=== PATIENT | female | born 1955 | race Caucasian/White ===

== ENCOUNTER → 2016-04-08 | Outpatient (CLI) | payer OTHER ==
[~2016-04-08] MED LIST: ASPI1TAB35 PO; CYAN6000 PO; CYCL5TAB PO; GUAR1POW PO; GUARPOW2 PO; OXYC1TAB3 PO; PRED10TA PO
[2016-04-08 11:47] LABS: BASO % 0.7 %; BASO ABS # 0.04 K/uL (0-0.2); COMPLETE YES; EOS % 1.5 %; HEMATOCRIT 42.9 % (37-47); IG% 0.2 %; LYMPH % 33.3 %; LYMPH ABS # 2.04 K/uL (1.2-3.4); MEAN CELL VOLUME 85.5 fL (80-100); MEAN CORPUSCULAR HEMOGLOBIN 28.5 pg (25-34); MEAN CORPUSCULAR HGB CONC 33.3 g/dl (32-36); MEAN PLATELET VOLUME 10.1 fL (7.4-10.4); MONO % 5.9 %; NEUT % 58.4 %; PLATELET COUNT 287 K/uL (130-400); RED BLOOD COUNT 5.02 M/uL (4.2-5.4); WHITE BLOOD COUNT 6.12 K/uL (4.8-10.8)
[2016-04-08 12:11] LABS: ALT/SGPT 19 U/L (12-78); BLOOD UREA NITROGEN 12 mg/dl (7-18); BUN/CREATININE RATIO 16.5 (10-20); CALCIUM 9.5 mg/dl (8.5-10.1); CARBON DIOXIDE 23 mmol/L (21-32); CHLORIDE 108 mmol/L (98-107); CHOLESTEROL 196 mg/dl (0-200); CREATININE 0.75 mg/dl (0.60-1.20); GLUCOSE 83 mg/dl (70-99); SODIUM 143 mmol/L (136-145)
[2016-04-08 12:22] LABS: ALKALINE PHOSPHATASE 110 U/L (45-117); AST/SGOT 11 U/L (15-37); CHOLESTEROL/HDL RATIO 3.4; HDL CHOLESTEROL 58 mg/dl; LDL CHOLESTEROL CALCULATED 120 mg/dl; TRIGLYCERIDES 89 mg/dl (0-150); VERY LOW DENSITY LIPOPROT CALC 18 mg/dl
== END | disposition home or self-care (01) ==
LOC: C.LAB 10:36
PROVIDERS: ATTEND Internal Medicine
DX: Z13.0 Encounter for screening for diseases of the blood and blood-forming organs and certain disorders involving the immune mechanism (principal); D53.8 Other specified nutritional anemias; E78.5 Hyperlipidemia, unspecified; Z13.1 Encounter for screening for diabetes mellitus; Z13.29 Encounter for screening for other suspected endocrine disorder

== ENCOUNTER → 2016-10-02 | Outpatient (CLI) | payer OTHER | END | disposition home or self-care (01) | LOC: C.PAPS 08:20 | PROVIDERS: ATTEND Obstetrics & Gynecology | DX: Z12.4 Encounter for screening for malignant neoplasm of cervix (principal) ==

== ENCOUNTER 2016-10-19 22:00 | Emergency (ER) | payer OTHER ==
[~2016-10-19] VITALS: Ht 170.2 cm; Wt 83.2 kg
[~2016-10-19 22:00] MED LIST changes: -ASPI1TAB35 PO; -CYCL5TAB PO; -GUAR1POW PO; -OXYC1TAB3 PO; -PRED10TA PO
[2016-10-19 22:03] VITALS: TEMP 36.8; Ht 170.2 cm; Wt 83.2 kg
[2016-10-19] MEDS ORDERED: GUAR1POW PO (22:31)
[2016-10-19] MEDS ORDERED: ASPI1TAB35 PO (22:31)
--- NOTE | 2016-10-19 23:09 | EMERGENCY ROOM VISIT NOTE ---
History Report prepared by Lauren: Evelio Lambert Under the Supervision of: Dr. Jeffry Anthony D.O. First contact with patient: 22:06 Chief Complaint: HIP PAIN Stated Complaint: LT HIP PAIN History of Present Illness The patient is a 61 year old female who presents to the Emergency Room with complaints of left stabbing hip pain that occurred this evening. The patient rates her pain a 10/10 in severity. The patient has been seeing a chiropractor for her lower back pain for the past 6 weeks. Recently, the patient has noticed her left hip has been "giving out" on her. She describes this as slipping down and forward. For her last four adjustments, she states that they have had to push her pelvis back in to place. She has a history of DDD and bone spurs in the area. She denies any other abnormal symptoms. Source of History: patient Onset: this evening Position: other (left hip) Symptom Intensity: 10/10 Quality: stabbing Timing: constant Associated Symptoms: + back pain Note: She denies any other symptoms at this time. Review of Systems See HPI for pertinent positives & negatives. A total of 10 systems reviewed and were otherwise negative. Past Medical & Surgical Medical Problems: (1) Allergy to epinephrine Surgical Problems: (1) H/O dilation and curettage Family History Heart disease Hypertension Lung disease Social History Smoking Status: Never Smoker Smokeless Tobacco Use: No Drug Use: none Marital Status: Housing Status: lives with significant other Occupation Status: unemployed Current/Historical Medications Scheduled Guar Gum (Nutrisource Fiber), 1 DOSE PO DAILY Scheduled PRN Aspirin (Danisha Aspirin), 325 MG PO DIRECTED PRN for Pain Allergies Coded Allergies: Diphenhydramine (Verified Allergy, Unknown, NEAR SYNCOPE, 10/19/16) Penicillins (Verified Allergy, Unknown, HIVES, 10/19/16) Propoxyphene (Verified Allergy, Unknown, BELLS PALSY SYMPTOMS, 10/19/16) Epinephrine (Verified Adverse Reaction, Unknown, NUMBNESS, 10/19/16) Ibuprofen (Verified Adverse Reaction, Unknown, NUMBNESS, HEART PALPATIONS , 10/19/16) Medroxyprogesterone (Verified Adverse Reaction, Unknown, NEAR SYNOPAL, HOT , 10/19/16) Valdecoxib (Verified Adverse Reaction, Unknown, NUMBNESS, NEAR SYNOPAL, ) Uncoded Allergies: ANITHISTAMINES (Adverse Reaction, Unknown, DOES NOT TAKE THEM D/T NEAR SYNOPAL, 11/03/14) IV DYE (Adverse Reaction, Unknown, UNSURE OF RX, BUT WAS TOLD NOT TO HAVE IT, 11/03/14) Physical Exam Vital Signs Date Time Temp Pulse Resp B/P (MAP) Pulse Ox O2 Delivery O2 Flow Rate FiO2 10/19/16 22:03 36.8 78 18 130/73 95 Room Air Physical Exam CONSTITUTIONAL/VITAL SIGNS: Reviewed / noted above. GENERAL: Non-toxic in appearance. INTEGUMENTARY: Warm, dry, and Lloyd. HEAD: Normocephalic. EYES: without scleral icterus or trauma. ENT/OROPHARYNX: clear and moist. LYMPHADENOPATHY/NECK: Is supple without lymphadenopathy or meningismus. RESPIRATORY: Lungs clear and equal. CARDIOVASCULAR: Regular rate and rhythm. GI/ABDOMEN: Soft and nontender. No organomegaly or pulsatile mass. No rebound or guarding. Normal bowel sounds. EXTREMITIES: Warm and well perfused. BACK: Mild tenderness to the left lower back musculature. NEUROLOGICAL: Intact without focal deficits. PSYCHIATRIC: normal affect. MUSCULOSKELETAL: Normally developed with good muscle tone. Medical Decision & Procedures ER Provider Diagnostic Interpretation: Radiology results as stated below per my review: Pelvis - with left hip 2 View X-ray: No evidence of fracture or dislocation. Per me. ED Course 2205: Previous medical records were reviewed. The patient was evaluated in room A12. A complete history and physical examination was performed. 0: On reevaluation, the patient is resting. I discussed the results and findings with the patient. She verbalized agreement of the treatment plan. She was discharged home. Medical Decision Differentials considered include cauda equina syndrome, conus medullaris, spinal cord compression syndrome, peripheral nerve compression, fractures or subluxations, intra-abdominal pathology such as abdominal aortic aneurysm or kidney stones, muscle strain, transverse myelitis, and spinal cord injury. This is a 61-year-old female who presents to the ED with a chief complaint of left hip pain. The patient states that she has been having trouble with her back and hip for over 6 weeks. She has been seeing a chiropractor as well as her PCP. She reports having had x-rays of her back previously. The patient thinks that is her hip going out. The patient was concerned about this and came in for evaluation. The primary aspect or area of her pain is located in the area just above the left iliac crest and soft tissue of the low left back area. It does not appear to be overlying any joints or bony structures. X- rays of the pelvis and left hip did not show any abnormalities. The patient was told the results. She is felt to be stable for discharge. She did not want pain medication. Medication Reconcilliation Current Medication List: was personally reviewed by me Blood Pressure Screening Patient's blood pressure: Normal blood pressure Blood pressure disposition: Did not require urgent referral Impression Primary Impression: Left hip pain Scribe Attestation The scribe's documentation has been prepared under my direction and personally reviewed by me in its entirety. I confirm that the note above accurately reflects all work, treatment, procedures, and medical decision making performed by me. Departure Information Dispostion Home / Self-Care Referrals Samy Hsu M.D. (PCP) Forms HOME CARE DOCUMENTATION FORM, IMPORTANT VISIT INFORMATION, WORK / SCHOOL INSTRUCTIONS Patient Instructions My [facility] Additional Instructions Follow-up with your doctor for further care and evaluation in 1-2 days. Return to the emergency department for worsening or new symptoms or any concerns. You have been examined and treated today on an emergency basis only. This is not a substitute for, or an effort to provide, complete comprehensive medical care. It is impossible to recognize and treat all injuries or illnesses in a single emergency department visit. It is therefore important that you follow up closely with your doctor. Call as soon as possible for an appointment.
[2016-10-19 23:27] VITALS: BP 119/79; PULSE 83; O2SAT 95
--- NOTE | 2016-10-20 06:41 | DIAGNOSTIC IMAGING REPORT ---
AP PELVIS AND LEFT HIP 3 VIEWS CLINICAL HISTORY: Left hip pain COMPARISON STUDY: No previous studies for comparison. FINDINGS: No acute fractures or subluxations are visualized. There are no erosive or destructive changes. The joint space appears relatively well preserved for age. Minor degenerative changes are evident. There is an accessory right L5 transverse process/sacral articulation. IMPRESSION: Minor degenerative change. No fractures identified. No destructive lesions are visualized Electronically signed by: Johnny Guillen M.D. 10/20/2016 6:39 AM Dictated Date/Time: 10/20/2016 6:38 AM
== END 2016-10-19 23:27 | disposition home or self-care (01) ==
LOC: C.EDB 22:02 → C.EDA 23:27
DX: M25.552 Pain in left hip (principal); Z82.49 Family history of ischemic heart disease and other diseases of the circulatory system

== ENCOUNTER 2016-10-21 18:13 | Emergency (ER) | payer OTHER ==
[~2016-10-21] VITALS: Ht 170.2 cm; Wt 97.7 kg
[~2016-10-21 18:13] MED LIST changes: +ASPI1TAB35 PO; +GUAR1POW PO
[2016-10-21 18:20] VITALS: TEMP 36.9; Ht 170.2 cm; Wt 97.7 kg
[2016-10-21] MEDS ORDERED: CYCLOBENZAPRINE HCL 10 MG TAB PO STA (18:32)
[2016-10-21] MEDS ORDERED: HYDROmorphone INJ 1 MG/ML SYR IM STA (18:32)
[2016-10-21] MEDS ORDERED: METHYLPREDNISOLONE 125 MG VIAL IM STA (18:32)
--- NOTE | 2016-10-21 18:39 | EMERGENCY ROOM VISIT NOTE ---
History Report prepared by Lauren: Morgan Gonzalez Under the Supervision of: Dr. Renée Miller M.D. First contact with patient: 18:20 Chief Complaint: HIP PAIN Stated Complaint: LF HIP PAIN History of Present Illness The patient is a 61 year old female who presents to the Emergency Room with complaints of constant posterior left hip pain starting a couple of hours ago. The patient states that she has been dealing with similar symptoms for the past 6 weeks, and she states that her "pelvis is slipping out". The patient states that she was in the ED two days ago for similar symptoms, and there were no abnormalities on the x-ray. The patient additionally states that her leg feels weak and inflamed. The patient additionally states that a week ago she lost control of her bowel or bladder, and she states that she pain is not radiating into her legs. She states that she cannot bear weight, and standing worsens the pain. Source of History: patient Onset: a couple of hours ago Position: other (left hip) Timing: constant Associated Symptoms: + weakness Review of Systems See HPI for pertinent positives & negatives. A total of 10 systems reviewed and were otherwise negative. Past Medical & Surgical Medical Problems: (1) Allergy to epinephrine Surgical Problems: (1) H/O dilation and curettage Family History Heart disease Hypertension Lung disease Social History Smoking Status: Never Smoker Drug Use: none Marital Status: Housing Status: lives with significant other Occupation Status: unemployed Current/Historical Medications Scheduled Guar Gum (Nutrisource Fiber), 1 DOSE PO DAILY Prednisone (Prednisone), 10 MG PO DIRECTED Scheduled PRN Aspirin (Danisha Aspirin), 325 MG PO DIRECTED PRN for Pain Cyclobenzaprine Hcl (Flexeril), 5 MG PO TID PRN for Muscle Spasms Oxycodone Immediate Rel Tab (Roxicodone Ir), 5 MG PO Q6H PRN for Pain Allergies Coded Allergies: Diphenhydramine (Verified Allergy, Unknown, NEAR SYNCOPE, 10/21/16) Penicillins (Verified Allergy, Unknown, HIVES, 10/21/16) Propoxyphene (Verified Allergy, Unknown, BELLS PALSY SYMPTOMS, 10/21/16) Epinephrine (Verified Adverse Reaction, Unknown, NUMBNESS, 10/21/16) Ibuprofen (Verified Adverse Reaction, Unknown, NUMBNESS, HEART PALPATIONS , 10/21/16) Medroxyprogesterone (Verified Adverse Reaction, Unknown, NEAR SYNOPAL, HOT , 10/21/16) Valdecoxib (Verified Adverse Reaction, Unknown, NUMBNESS, NEAR SYNOPAL, 10/21/16) Uncoded Allergies: ANITHISTAMINES (Adverse Reaction, Unknown, DOES NOT TAKE THEM D/T NEAR SYNOPAL, 11/03/14) IV DYE (Adverse Reaction, Unknown, UNSURE OF RX, BUT WAS TOLD NOT TO HAVE IT, 11/03/14) Physical Exam Vital Signs Date Time Temp Pulse Resp B/P (MAP) Pulse Ox O2 Delivery O2 Flow Rate FiO2 10/21/16 22:00 87 19 137/68 98 10/21/16 20:40 77 17 144/77 98 Room Air 10/21/16 19:45 77 18 138/77 98 10/21/16 19:07 88 16 138/86 98 Room Air 10/21/16 18:20 36.9 96 17 147/84 97 Room Air Physical Exam Vital signs reviewed. General: Well-appearing female, in no significant distress. HEENT: No scleral icterus, PERRLA, neck supple. Atraumatic. Cardiovascular: Regular rate and rhythm, no extra sounds. Pulmonary: Clear to auscultation bilaterally, normal work of breathing. Abdomen: Soft, nontender, nondistended, positive bowel sounds. Musculoskeletal: Tender to palpation over the left lumbar paraspinous muscles. Negative left leg raise with positive right leg raise with pain referring to the left flank. Atraumatic, no peripheral edema. Neurologic: Patient awake alert and oriented x 3, full strength in all 4 extremities. Cranial nerves 2 through 12 grossly intact. Skin: Warm, dry, no rash Medical Decision & Procedures ER Provider Diagnostic Interpretation: Radiology results as stated below per my review and radiologist interpretation: L-SPINE MIN 4 VIEWS ROUTINE HISTORY: 61 years-old Female L flank pain, radiculopathy acute left sided back pain without reported trauma. COMPARISON: Lumbar spine radiographs 08/20/2013 TECHNIQUE: 5 views of the lumbar spine FINDINGS: 6 nonrib-bearing lumbar vertebral segments are again seen with transitional lumbosacral anatomy on the right. There is pseudoarticulation of an enlarged right transverse process of L6 with the adjacent sacral ala. Mild convex left curvature of the mid lumbar spine is again seen. The bones are mildly demineralized. Multilevel endplate spurring with intervertebral disc space narrowing and facet arthropathy is redemonstrated. Mild anterior wedging of the L2 and L3 vertebral bodies again seen, unchanged from comparison. No acute compression deformity or malalignment. Intervertebral disc space narrowing is most pronounced at the 2-L3 and L3-L4 levels. Soft tissues are unremarkable. IMPRESSION: 1. No acute lumbar spine fracture or dislocation. 2. Redemonstration of multilevel endplate spurring, intervertebral disc space narrowing and facet arthropathy with unchanged mild anterior wedging at the L3 and L4 levels. 3. 6 nonrib-bearing lumbar type vertebral segments are seen with partial sacralization of L6 on the right. The above report was generated using voice recognition software. It may contain grammatical, syntax or spelling errors. Electronically signed by: Dejon Marie M.D. 10/21/2016 7:31 PM Dictated Date/Time: 10/21/2016 7:27 PM Medications Administered Medications (Trade) Dose Ordered Sig/Adam Route Start Time Stop Time Status Last Admin Dose Admin Cyclobenzaprine HCl (Flexeril Tab) 10 mg NOW STAT PO 10/21/16 18:32 10/21/16 18:34 DC 10/21/16 18:56 10 MG Methylprednisolone Sodium Succinate (Solu-Medrol IV) 125 mg NOW STAT IM 10/21/16 18:32 10/21/16 18:34 DC 10/21/16 18:58 125 MG Hydromorphone HCl (Dilaudid Inj) 1 mg NOW STAT IM 10/21/16 18:32 10/21/16 18:34 DC 10/21/16 18:58 1 MG Oxycodone HCl (Roxicodone Immediate Rel 5MG Home Pack) 1 homepack UD ONCE PO 10/21/16 20:45 10/21/16 20:46 DC 10/21/16 21:49 1 HOMEPACK Cyclobenzaprine HCl (FLEXERIL 10MG Home Pack) 1 homepack UD ONCE PO 10/21/16 20:45 10/21/16 20:46 DC 10/21/16 21:49 1 HOMEPACK Prednisone (PredniSONE TAB) 40 mg ONE STAT PO 10/21/16 20:43 10/21/16 20:45 DC 10/21/16 20:43 40 MG ED Course 1830: Past medical records reviewed. The patient was evaluated in room C11. A complete history and physical examination was performed. 1831: Dilaudid Inj 1mg IM, Solu-Medrol 125mg IM, Flexeril Tab 10mg PO 2031: I reevaluated the patient, and I updated her on her test results. I discussed the treatment plan, and she was agreeable. The patient is ready for discharge. 2042: Prednisone 40mg PO 2044: Flexeril 10mg Home Pack PO, Oxycodone HCl 1 Home Pack PO Medical Decision Differential Diagnoses: Muscle strain, deconditioning, lumbar radiculopathy, pyelonephritis, disc herniation, degenerative disc disease, and spinal stenosis. This patient was evaluated and appeared to be in no significant distress. Patient was given 10 mg of Flexeril, 1 mg of IM Dilaudid in 125 mg of IM Solu- Medrol. X-rays of the lumbar spine were obtained and are read as above. There is degenerative disc disease as well as some old wedge-shaped deformity of L3 and L4. I suspect the patient has a lumbar paraspinous muscle strain. She is anxious about the injury. She was feeling much improved after the above medications. She is cautious with ambulation therefore was provided a walker for discharge. She was given a prescription for prednisone taper. She will use Flexeril 5 mg 3 times daily as needed. She will use Tylenol as needed for less severe pain and OxyIR 5 mg every 6 hours as needed for severe pain. She was advised to use warm compresses and gentle stretching. She was advised that physical therapy may be of significant assistance. She was discharged in care of her and will return to the ER for worsening of symptoms or any medical concerns. Medication Reconcilliation Current Medication List: was personally reviewed by me Blood Pressure Screening Patient's blood pressure: Elevated blood pressure Blood pressure disposition: Elevated BP felt to be situational Impression Primary Impression: Lumbar paraspinal muscle spasm Additional Impression: Degenerative disc disease, lumbar Scribe Attestation The scribe's documentation has been prepared under my direction and personally reviewed by me in its entirety. I confirm that the note above accurately reflects all work, treatment, procedures, and medical decision making performed by me. Departure Information Dispostion Home / Self-Care Prescriptions Oxycodone Immediate Rel Tab (ROXICODONE IR) 5 Mg Tab 5 MG PO Q6H Y for Pain, #20 TAB Prov: Renée Miller M.D. 10/21/16 Cyclobenzaprine Hcl (FLEXERIL) 5 Mg Tab 5 MG PO TID Y for Muscle Spasms, #21 TAB Prov: Renée Miller M.D. 10/21/16 Prednisone (Prednisone) 10 Mg Tab 10 MG PO DIRECTED, #31 TAB 40 mg daily for 4 days, 30 mg daily for 3 days, 20 mg daily for 2 days, 10 mg daily for 2 days. Prov: Renée Miller M.D. 10/21/16 Referrals Pro,Samy Cartwright M.D. (PCP) Forms HOME CARE DOCUMENTATION FORM, IMPORTANT VISIT INFORMATION, WORK / SCHOOL INSTRUCTIONS Patient Instructions My [facility] Additional Instructions Diagnosis: Lumbar degenerative disc disease, paraspinous muscular spasm. Prednisone 40 mg daily for 4 days, 30 mg daily for 3 days, 20 mg daily for 2 days, 10 mg daily for 2 days. Flexeril 5 mg 3 times daily as needed for muscular spasm. Tylenol 650 mg every 6 hours as needed for pain. OxyIR 5 mg every 6 hours as needed for severe pain. Do not drive on this medication. Follow-up with your physician next week for reevaluation and likely physical therapy recommendations. Return to the emergency department for worsening of symptoms or any medical concerns. Problem Qualifiers
--- NOTE | 2016-10-21 19:32 | DIAGNOSTIC IMAGING REPORT ---
L-SPINE MIN 4 VIEWS ROUTINE HISTORY: 61 years-old Female L flank pain, radiculopathy acute left sided back pain without reported trauma. COMPARISON: Lumbar spine radiographs 08/20/2013 TECHNIQUE: 5 views of the lumbar spine FINDINGS: 6 nonrib-bearing lumbar vertebral segments are again seen with transitional lumbosacral anatomy on the right. There is pseudoarticulation of an enlarged right transverse process of L6 with the adjacent sacral ala. Mild convex left curvature of the mid lumbar spine is again seen. The bones are mildly demineralized. Multilevel endplate spurring with intervertebral disc space narrowing and facet arthropathy is redemonstrated. Mild anterior wedging of the L2 and L3 vertebral bodies again seen, unchanged from comparison. No acute compression deformity or malalignment. Intervertebral disc space narrowing is most pronounced at the 2-L3 and L3-L4 levels. Soft tissues are unremarkable. IMPRESSION: 1. No acute lumbar spine fracture or dislocation. 2. Redemonstration of multilevel endplate spurring, intervertebral disc space narrowing and facet arthropathy with unchanged mild anterior wedging at the L3 and L4 levels. 3. 6 nonrib-bearing lumbar type vertebral segments are seen with partial sacralization of L6 on the right. The above report was generated using voice recognition software. It may contain grammatical, syntax or spelling errors. Electronically signed by: Dejon Marie M.D. 10/21/2016 7:31 PM Dictated Date/Time: 10/21/2016 7:27 PM
[2016-10-21] MEDS ORDERED: CYCL5TAB PO (20:41)
[2016-10-21] MEDS ORDERED: OXYC1TAB3 PO (20:41)
[2016-10-21] MEDS ORDERED: PRED10TA PO (20:41)
[2016-10-21] MEDS ORDERED: FLEXERIL HOME PACK 10 MG VIAL PO ONE (20:45)
[2016-10-21] MEDS ORDERED: OXYCODONE IR HOME PACK PO ONE (20:45)
[2016-10-21] MEDS ORDERED: EMPTY 8 DRAM VIAL ONE (21:04)
[2016-10-21 22:00] VITALS: BP 137/68; PULSE 87; O2SAT 98
== END 2016-10-21 21:55 | disposition home or self-care (01) ==
LOC: EDBD 18:13 → C.EDC 18:14
DX: M62.830 Muscle spasm of back (principal); M51.36 Other intervertebral disc degeneration, lumbar region; Z98.890 Other specified postprocedural states; Z82.49 Family history of ischemic heart disease and other diseases of the circulatory system

== ENCOUNTER → 2017-02-28 | Outpatient (CLI) | payer OTHER ==
[~2017-02-28] MED LIST changes: -CYAN6000 PO; -GUARPOW2 PO; +OXYC1TAB3 PO; +PRED10TA PO
--- NOTE | 2017-03-01 14:39 | MAMMOGRAPHY REPORT ---
BILATERAL DIGITAL SCREENING MAMMOGRAM TOMOSYNTHESIS WITH CAD: 02/28/2017 CLINICAL HISTORY: Routine screening. Patient has no complaints. TECHNIQUE: Breast tomosynthesis in addition to standard 2D mammography was performed. Current study was also evaluated with a Computer Aided Detection (CAD) system. COMPARISON: Comparison is made to exams dated: 01/06/2016 mammogram, 10/20/2014 mammogram, 07/18/2013 m ammogram, 04/24/2012 mammogram, 06/30/2011 ultrasound, and 04/20/2011 mammogram - [facility] nter. BREAST COMPOSITION: The tissue of both breasts is almost entirely fatty. FINDINGS: No suspicious masses, calcifications, or areas of architectural distortion are noted in ei ther breast. There has been no significant interval change compared to prior exams. IMPRESSION: ACR BI-RADS CATEGORY 1: NEGATIVE There is no mammographic evidence of malignancy. A 1 year screening mammogram is recommended. The pa tient will receive written notification of the results. Approximately 10% of breast cancers are not detected with mammography. A negative mammographic report should not delay biopsy if a clinically suggestive mass is present. Yocasta Pryor M.D. /:03/01/2017 07:39:13 Ceramic Saw Tender: Jordyn SHAH)(Jessica), [facility] letter sent: Normal 1/2 BI-RADS Code: ACR BI-RADS Category 1: Negative
== END | disposition home or self-care (01) ==
LOC: C.MAMM 17:08
PROVIDERS: ATTEND Obstetrics & Gynecology
DX: Z12.31 Encounter for screening mammogram for malignant neoplasm of breast (principal)

== ENCOUNTER → 2017-04-28 | Outpatient (CLI) | payer OTHER ==
[~2017-04-28] MED LIST changes: -OXYC1TAB3 PO; -PRED10TA PO
[2017-04-28 13:49] LABS: HEMATOCRIT 42.7 % (37-47); HEMOGLOBIN 14.4 g/dL (12.0-16.0); MEAN CELL VOLUME 84.6 fL (80-100); MEAN CORPUSCULAR HEMOGLOBIN 28.5 pg (25-34); MEAN CORPUSCULAR HGB CONC 33.7 g/dl (32-36); PLATELET COUNT 288 K/uL (130-400); RED CELL DISTRIBUTION WIDTH CV 13.6 % (11.5-14.5); RED CELL DISTRIBUTION WIDTH SD 41.5 fL (36.4-46.3); WHITE BLOOD COUNT 6.26 K/uL (4.8-10.8)
[2017-04-28 14:07] LABS: ALT/SGPT 20 U/L (12-78); AST/SGOT 11 U/L (15-37); BLOOD UREA NITROGEN 12 mg/dl (7-18); CALCIUM 9.7 mg/dl (8.5-10.1); CARBON DIOXIDE 24 mmol/L (21-32); CREATININE 0.81 mg/dl (0.60-1.20); GLUCOSE 88 mg/dl (70-99); POTASSIUM 3.9 mmol/L (3.5-5.1); SODIUM 139 mmol/L (136-145)
[2017-04-28 14:10] LABS: CHOLESTEROL 192 mg/dl (0-200); LDL CHOLESTEROL CALCULATED 113 mg/dl
== END | disposition home or self-care (01) ==
LOC: C.LAB 12:26
PROVIDERS: ATTEND Internal Medicine
DX: E78.5 Hyperlipidemia, unspecified (principal); M43.10 Spondylolisthesis, site unspecified; E53.8 Deficiency of other specified B group vitamins; K21.9 Gastro-esophageal reflux disease without esophagitis

== ENCOUNTER 2017-07-05 18:30 | Emergency (ER) | payer OTHER ==
[~2017-07-05] VITALS: Ht 170.2 cm; Wt 99.9 kg
[~2017-07-05 18:30] MED LIST changes: -ASPI1TAB35 PO
[2017-07-05 18:35] VITALS: TEMP 37; Ht 170.2 cm; Wt 99.9 kg
[2017-07-05] MEDS ORDERED: ACETAMINOPHEN 500 MG TAB PO STA (18:45)
[2017-07-05] MEDS ORDERED: ONDANSETRON INJ 2 MG/ML 2 ML VIAL IV STA (18:45)
[2017-07-05] MEDS ORDERED: MoRPHine SULFATE 4 MG/ML 1 ML CARP\\VIAL IV STA (18:45)
--- NOTE | 2017-07-05 18:49 | EMERGENCY ROOM VISIT NOTE ---
History Report prepared by Lauren: Zoie Yuan Under the Supervision of: Dr. Jules Bowen M.D. 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 Positive nausea. Negative blood in her urine, chest pain, SOB, fevers, chills, rash, recent antibiotic use, or vaginal bleeding. She states her pain was intermittent when it began but over the past week it has worsened and is now constant. She notes the pain is mostly around her uterus and goes across both of her ovaries. Lying down slightly relieves her pain. The patient reports she was recently helping her pull a tarp when she felt a pinched nerve in her back and states that was around the time her pain began. She has taken Flexeril for her pain but notes it has note alleviated her pain. 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 Review of Systems See HPI for pertinent positives and negatives. A total of ten systems were reviewed and were otherwise negative. Past Medical & Surgical Medical Problems: (1) Allergy to epinephrine Surgical Problems: (1) H/O dilation and curettage Family History Heart disease Hypertension Lung disease Social History Smoking Status: Never Smoker Drug Use: none Marital Status: Housing Status: lives with significant other Occupation Status: unemployed Current/Historical Medications Scheduled Cyanocobalamin (Vitamin B12), 1,000 MG SL WK Dicyclomine Hcl (Bentyl), 10 MG PO TID Scheduled PRN Aspirin (Danisha Aspirin), 325 MG PO DIRECTED PRN for Pain Cyclobenzaprine Hcl (Flexeril), 5 MG PO TID PRN for Muscle Spasms Psyllium (Fiber Laxative), 1 TAB PO 3XWK PRN for Constipation Allergies Coded Allergies: Diphenhydramine (Verified Allergy, Unknown, NEAR SYNCOPE, 07/05/17) Penicillins (Verified Allergy, Unknown, HIVES, 07/05/17) Propoxyphene (Verified Allergy, Unknown, BELLS PALSY SYMPTOMS, 07/05/17) Metronidazole (Verified Adverse Reaction, Severe, DR STATES NOT TO TAKE., 07/05/17) Epinephrine (Verified Adverse Reaction, Unknown, NUMBNESS, 07/05/17) Ibuprofen (Verified Adverse Reaction, Unknown, NUMBNESS, HEART PALPATIONS , 07/05/17) Medroxyprogesterone (Verified Adverse Reaction, Unknown, NEAR SYNOPAL, HOT , 07/05/17) Valdecoxib (Verified Adverse Reaction, Unknown, NUMBNESS, NEAR SYNOPAL, ) Uncoded Allergies: ANITHISTAMINES (Adverse Reaction, Unknown, DOES NOT TAKE THEM D/T NEAR SYNOPAL, 11/03/14) IV DYE (Adverse Reaction, Unknown, UNSURE OF RX, BUT WAS TOLD NOT TO HAVE IT, 11/03/14) Physical Exam Vital Signs Date Time Temp Pulse Resp B/P (MAP) Pulse Ox O2 Delivery O2 Flow Rate FiO2 07/05/17 22:18 66 16 134/76 98 07/05/17 20:29 83 18 153/87 98 Room Air 07/05/17 18:35 37.0 101 18 138/86 97 Room Air Physical Exam GENERAL: Awake, alert, well-appearing, NAD HENT: Normocephalic, atraumatic. EYES: Normal conjunctiva. Sclera non-icteric. PERRL. No anisocoria. NECK: Supple. No nuchal rigidity. FROM. RESPIRATORY: CTAB, no rhonchi, wheezing, crackles CARDIAC: RRR, no MRG ABDOMEN: Soft, BS+. No upper abdominal discomfort. No periumbilical pain. Mild RLQ discomfort. Suprapubic TTP. No LLQ discomfort. Negative obturators. Negative psoas. Not peritonitic. MSK: No chest wall TTP, no LE edema. No CVA TTP. NEURO: GCS 15, CN 2-12 intact, moves all 4s on command SKIN: No rash or jaundice noted. Medical Decision & Procedures ER Provider Diagnostic Interpretation: Radiology results as stated below per my review and radiologist interpretation: PA CHEST WITH ABDOMINAL SERIES CLINICAL HISTORY: Generalized abdominal pain. FINDINGS: A PA chest radiograph is compared to study dated 01/20/2015. The cardiomediastinal silhouette is unremarkable. There is mild atherosclerotic calcification of the thoracic aorta. Chronic interstitial thickening is similar to previous. No airspace consolidation or large pleural effusion is identified. No pneumothorax is seen. The skeletal structures are osteopenic. The bony thorax is grossly intact. Supine and erect abdominal radiographs are correlated with abdominal CT dated 10/13/2010. There is a nonobstructed abdominal bowel gas pattern. No evidence of intraperitoneal free air is seen. Scattered air-fluid levels are noted in the small bowel. There are no abnormal abdominal calcifications. Numerous phleboliths are observed in the pelvis. There is mild lumbosacral spondylosis. The lumbosacral spine and bony pelvis appear intact. IMPRESSION: 1. No active disease in the chest. 2. Nonobstructed abdominal bowel gas pattern. 3. There are scattered air-fluid levels noted throughout the small bowel. This is nonspecific but can be seen in the setting of an enteritis. Clinical correlation will be required. Electronically signed by: Aden De La Cruz M.D. 07/05/2017 8:22 PM Laboratory Results 07/05/17 19:40 Red Blood Count 4.75, Mean Corpuscular Volume 84.6, Mean Corpuscular Hemoglobin 28.4, Mean Corpuscular Hemoglobin Concent 33.6, Mean Platelet Volume 9.3, Neutrophils (%) (Auto) 73.4, Lymphocytes (%) (Auto) 18.5, Monocytes (%) (Auto) 7.0, Eosinophils (%) (Auto) 0.6, Basophils (%) (Auto) 0.3, Neutrophils # (Auto) 7.92, Lymphocytes # (Auto) 1.99, Monocytes # (Auto) 0.75, Eosinophils # (Auto) 0.07, Basophils # (Auto) 0.03 07/05/17 19:40 Test 07/05/17 19:40 07/05/17 20:57 White Blood Count 10.78 K/uL (4.8-10.8) Red Blood Count 4.75 M/uL (4.2-5.4) Hemoglobin 13.5 g/dL (12.0-16.0) Hematocrit 40.2 % (37-47) Mean Corpuscular Volume 84.6 fL (80-100) Mean Corpuscular Hemoglobin 28.4 pg (25-34) Mean Corpuscular Hemoglobin Concent 33.6 g/dl (32-36) Platelet Count 260 K/uL (130-400) Mean Platelet Volume 9.3 fL (7.4-10.4) Neutrophils (%) (Auto) 73.4 % Lymphocytes (%) (Auto) 18.5 % Monocytes (%) (Auto) 7.0 % Eosinophils (%) (Auto) 0.6 % Basophils (%) (Auto) 0.3 % Neutrophils # (Auto) 7.92 K/uL (1.4-6.5) Lymphocytes # (Auto) 1.99 K/uL (1.2-3.4) Monocytes # (Auto) 0.75 K/uL (0.11-0.59) Eosinophils # (Auto) 0.07 K/uL (0-0.5) Basophils # (Auto) 0.03 K/uL (0-0.2) RDW Standard Deviation 39.8 fL (36.4-46.3) RDW Coefficient of Variation 13.0 % (11.5-14.5) Immature Granulocyte % (Auto) 0.2 % Immature Granulocyte # (Auto) 0.02 K/uL (0.00-0.02) Prothrombin Time 10.0 SECONDS (9.0-12.0) Prothromb Time International Ratio 1.0 (0.9-1.1) Activated Partial Thromboplast Time 29.7 SECONDS (21.0-31.0) Partial Thromboplastin Ratio 1.1 Anion Gap 6.0 mmol/L (3-11) Est Creatinine Clear Calc Drug Dose 89.7 ml/min Estimated GFR () 91.5 Estimated GFR (Non- 78.9 BUN/Creatinine Ratio 16.8 (10-20) Calcium Level 9.1 mg/dl (8.5-10.1) Total Bilirubin 0.4 mg/dl (0.2-1) Direct Bilirubin 0.2 mg/dl (0-0.2) Aspartate Amino Transf (AST/SGOT) 15 U/L (15-37) Alanine Aminotransferase (ALT/SGPT) 19 U/L (12-78) Alkaline Phosphatase 102 U/L (45-117) Total Protein 7.4 gm/dl (6.4-8.2) Albumin 3.6 gm/dl (3.4-5.0) Lipase 184 U/L (73-393) Urine Color YELLOW Urine Appearance CLEAR (CLEAR) Urine pH 6.0 (4.5-7.5) Urine Specific [place] 1.010 (1.000-1.030) Urine Protein NEG (NEG) Urine Glucose (UA) NEG (NEG) Urine Ketones NEG (NEG) Urine Occult Blood NEG (NEG) Urine Nitrite NEG (NEG) Urine Bilirubin NEG (NEG) Urine Urobilinogen NEG (NEG) Urine Leukocyte Esterase MODERATE (NEG) Urine WBC (Auto) 1-5 /hpf (0-5) Urine RBC (Auto) 0-4 /hpf (0-4) Urine Hyaline Casts (Auto) 0 /lpf (0-5) Urine Epithelial Cells (Auto) 10-20 /lpf (0-5) Urine Bacteria (Auto) NEG (NEG) Laboratory results reviewed by me Medications Administered Medications (Trade) Dose Ordered Sig/Adam Route Start Time Stop Time Status Last Admin Dose Admin Sodium Chloride 500 ml @ 999 mls/hr Q31M STAT IV 07/05/17 19:04 07/05/17 19:34 DC 07/05/17 19:04 999 MLS/HR Dicyclomine HCl (Bentyl Cap) 10 mg NOW ONCE PO 07/05/17 22:00 07/05/17 22:01 DC 07/05/17 22:15 10 MG ED Course 1839: The patient was evaluated in room B11. A complete history and physical exam was performed. 2019: I checked on the patient at this time. She is feeling better. 2200: I reevaluated the patient. Discussed results and discharge instructions: She verbalized understanding and agreement. The patient is ready for discharge. 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 Positive nausea. Negative blood in her urine, chest pain, SOB, fevers, chills, rash, recent antibiotic use, or vaginal bleeding. Differential diagnosis: Etiologies such as appendicitis, diverticulitis, PUD, biliary pathology, UTI, pancreatitis, obstruction, mesenteric ischemia, aortic pathology, infections, inflammatory bowel disease, renal colic, as well as others were entertained. Patient was seen and evaluated the bedside. Patient does complain of some lower abdominal discomfort which is intermittent and now persistent. Patient does have discomfort of the suprapubic area and right lower quadrant. It is greater in the suprapubic area. Patient had a negative obturator's negative psoas. No CVA TTP. Patient does not appear to need it. Patient has not been very nauseous and has not had any vomiting or fever. Patient did have blood work completed along with plain films. Patient's plain films did show scattered air-fluid levels which may be consistent with an enteritis. I did relay these results with patient. The patient has a normal white blood cell count, LFTs, and lipase. Patient has normal kidney function. Patient denies any chest pain or shortness of breath no EKG or chest x-ray were obtained at this time and I do not believe that this is referred chest pain or ACS. Patient did feel improved upon reassessment. I did discuss with the patient that while we cannot diagnose diverticulitis without CT scan given the patient' s clinical history ongoing 1 week without an elevated white count, fever, or bloody bowel movement and the fact that her physical exam is fairly unremarkable she does not have any left lower quadrant discomfort this may be less likely. Likely would see some sort of inflammatory reaction by this time. I discussed possibility of early onset appendicitis but also less likely given the patient's normal white blood cell count, lack of fever, lack of nausea , vomiting and fairly benign exam. Patient was feeling improved. The patient was given medications for home and was told to follow-up with her primary care physician. Patient was told return if she any worsening symptoms, fever, or inability to tolerate p.o. Patient was given strict follow-up, discharge, and return precautions. All questions were answered. Patient was deemed suitable for outpatient follow-up at this time. Patient agreed with the plan of care and was safely discharged home. Medication Reconcilliation Current Medication List: was personally reviewed by me Blood Pressure Screening Patient's blood pressure: Normal blood pressure Blood pressure disposition: Did not require urgent referral Impression Primary Impression: Abdominal pain Additional Impression: Enteritis Scribe Attestation The scribe's documentation has been prepared under my direction and personally reviewed by me in its entirety. I confirm that the note above accurately reflects all work, treatment, procedures, and medical decision making performed by me. Departure Information Dispostion Home / Self-Care Prescriptions Dicyclomine Hcl (BENTYL) 10 Mg Cap 10 MG PO TID for 5 Days, #15 CAP Prov: Jules Bowen M.D. 07/05/17 Referrals Samy Hsu M.D. (PCP) Forms Call Back Authorization, HOME CARE DOCUMENTATION FORM, IMPORTANT VISIT INFORMATION Patient Instructions ED Gastroenteritis Non Infec, My Ty Krishnamurthy Additional Instructions Please return to the emergency department if you have worsening or recurrent symptoms not amenable to at-home treatment. Please call for a follow-up appointment with her primary care physician. Please take your medications as prescribed. If you have other concerns and/or complaints please feel free to also call your primary care physician's office or return the ED for further evaluation, management, and treatment. You were found to have an elevated blood pressure today (>120 sytolic or >90 diastolic). Per medicare guidelines, you need to follow up with this blood pressure screening with your Primary Care Physician (PCP). For a new PCP call [phone]. You received narcotic or benzodiazepene medication while in the emergency room today. This is an addictive medication that may cause drowziness as well as constipation. Do not drive, operate heavy machinery, or drink alcohol under the influence of this medication. You may take 400 mg Ibuprofen every 6 hours as needed for pain/fever with food unless told by your physician not to take NSAIDs. You may take tylenol 650 mg every 6 hours as needed for pain/fever unless told by your physician to not take it or have liver problems. You may take motrin and tylenol separately or at the same time. Take your medications as prescribed. You have been examined and treated today on an emergency basis only. This is not a substitute for, or an effort to provide, complete comprehensive medical care. It is impossible to recognize and treat all injuries or illnesses in a single emergency department visit. It is therefore important that you follow up closely with [facility], your PCP, and/or your specialist(s). Call as soon as possible for an appointment. Thank you for your time and consideration. I look forward to speaking with you again soon. Please don't hesitate to call us if you have any questions. Problem Qualifiers Primary Impression: Abdominal pain Abdominal location: epigastric Qualified Codes: R10.13 - Epigastric pain
[2017-07-05] MEDS ORDERED: SODIUM CHLORIDE 0.9% 500ML 500 ML IV STA (19:04)
[2017-07-05] MEDS ORDERED: PSYL0.527 PO (19:10)
[2017-07-05] MEDS ORDERED: CYCL5TAB PO (19:10)
[2017-07-05] MEDS ORDERED: CYAN100020 SL (19:11)
[2017-07-05 19:55] LABS: BASO % 0.3 %; BASO ABS # 0.03 K/uL (0-0.2); EOS % 0.6 %; EOS ABS # 0.07 K/uL (0-0.5); HEMATOCRIT 40.2 % (37-47); HEMOGLOBIN 13.5 g/dL (12.0-16.0); IG# 0.02 K/uL (0.00-0.02); LYMPH % 18.5 %; LYMPH ABS # 1.99 K/uL (1.2-3.4); MEAN CELL VOLUME 84.6 fL (80-100); MEAN CORPUSCULAR HEMOGLOBIN 28.4 pg (25-34); MEAN CORPUSCULAR HGB CONC 33.6 g/dl (32-36); MEAN PLATELET VOLUME 9.3 fL (7.4-10.4); MONO ABS # 0.75 K/uL (0.11-0.59); NEUT % 73.4 %; NEUT ABS # 7.92 K/uL (1.4-6.5); PLATELET COUNT 260 K/uL (130-400); RED CELL DISTRIBUTION WIDTH SD 39.8 fL (36.4-46.3); WHITE BLOOD COUNT 10.78 K/uL (4.8-10.8)
[2017-07-05 20:03] LABS: PTT PATIENT 29.7 SECONDS (21.0-31.0)
[2017-07-05 20:16] LABS: ALBUMIN 3.6 gm/dl (3.4-5.0); CALCIUM 9.1 mg/dl (8.5-10.1); CREATININE 0.81 mg/dl (0.60-1.20); POTASSIUM 3.8 mmol/L (3.5-5.1); TOTAL PROTEIN 7.4 gm/dl (6.4-8.2)
--- NOTE | 2017-07-05 20:23 | DIAGNOSTIC IMAGING REPORT ---
PA CHEST WITH ABDOMINAL SERIES CLINICAL HISTORY: Generalized abdominal pain. FINDINGS: A PA chest radiograph is compared to study dated 01/20/2015. The cardiomediastinal silhouette is unremarkable. There is mild atherosclerotic calcification of the thoracic aorta. Chronic interstitial thickening is similar to previous. No airspace consolidation or large pleural effusion is identified. No pneumothorax is seen. The skeletal structures are osteopenic. The bony thorax is grossly intact. Supine and erect abdominal radiographs are correlated with abdominal CT dated 10/13/2010. There is a nonobstructed abdominal bowel gas pattern. No evidence of intraperitoneal free air is seen. Scattered air-fluid levels are noted in the small bowel. There are no abnormal abdominal calcifications. Numerous phleboliths are observed in the pelvis. There is mild lumbosacral spondylosis. The lumbosacral spine and bony pelvis appear intact. IMPRESSION: 1. No active disease in the chest. 2. Nonobstructed abdominal bowel gas pattern. 3. There are scattered air-fluid levels noted throughout the small bowel. This is nonspecific but can be seen in the setting of an enteritis. Clinical correlation will be required. Electronically signed by: Aden De La Cruz M.D. 07/05/2017 8:22 PM Dictated Date/Time: 07/05/2017 8:20 PM
[2017-07-05] MEDS ORDERED: DICY10CA55 PO (21:48)
[2017-07-05] MEDS ORDERED: DICYCLOMINE HCL 10 MG CAP PO ONE (22:00)
[2017-07-05 22:18] VITALS: BP 134/76; PULSE 66; O2SAT 98
[2017-07-05] MEDS ORDERED: ASPI1TAB35 PO (22:31)
== END 2017-07-05 22:18 | disposition home or self-care (01) ==
LOC: C.EDB 18:33
DX: R10.13 Epigastric pain (principal); K52.9 Noninfective gastroenteritis and colitis, unspecified; Z98.890 Other specified postprocedural states; Z88.8 Allergy status to other drugs, medicaments and biological substances; Z88.0 Allergy status to penicillin; Z88.6 Allergy status to analgesic agent; Z91.041 Radiographic dye allergy status; Z82.49 Family history of ischemic heart disease and other diseases of the circulatory system

== ENCOUNTER → 2017-10-11 | Outpatient (CLI) | payer OTHER ==
[~2017-10-11] MED LIST changes: +ASPI1TAB35 PO; +CYAN100020 SL; +CYCL5TAB PO; -GUAR1POW PO; +PHEN-905 PO; +PSYL0.527 PO
[2017-10-11 16:40] LABS: HEMATOCRIT 44.3 % (37-47); HEMOGLOBIN 14.4 g/dL (12.0-16.0); MEAN CELL VOLUME 85.5 fL (80-100); MEAN CORPUSCULAR HEMOGLOBIN 27.8 pg (25-34); MEAN CORPUSCULAR HGB CONC 32.5 g/dl (32-36); MEAN PLATELET VOLUME 10.1 fL (7.4-10.4); PLATELET COUNT 320 K/uL (130-400); RED CELL DISTRIBUTION WIDTH CV 14.8 % (11.5-14.5); WHITE BLOOD COUNT 8.38 K/uL (4.8-10.8)
[2017-10-11 17:04] LABS: ALBUMIN 3.9 gm/dl (3.4-5.0); ALKALINE PHOSPHATASE 118 U/L (45-117); ALT/SGPT 24 U/L (12-78); AST/SGOT 20 U/L (15-37); BLOOD UREA NITROGEN 15 mg/dl (7-18); CALCIUM 9.8 mg/dl (8.5-10.1); CARBON DIOXIDE 26 mmol/L (21-32); CREATININE 0.79 mg/dl (0.60-1.20); GLUCOSE 85 mg/dl (70-99); POTASSIUM 4.4 mmol/L (3.5-5.1); SODIUM 138 mmol/L (136-145)
== END | disposition home or self-care (01) ==
LOC: C.LAB1850 15:51
PROVIDERS: ATTEND Internal Medicine
DX: A69.20 Lyme disease, unspecified (principal)

== ENCOUNTER 2021-06-29 18:54 | Inpatient (IN) ==
[2021-06-29] MEDS ORDERED: ACETAMINOPHEN 1,000 MG/100 ML VIAL IV STA (19:26)
[2021-06-29] MEDS ORDERED: SODIUM CHLORIDE 0.9% 1000ML 1,000 ML IV SCH (19:30)
[2021-06-29] MEDS ORDERED: VANCOMYCIN HCL 2,000 MG in SODIUM CHLORIDE 0.9% 500 ML IV ONE (19:56)
[2021-06-29] MEDS ORDERED: VANCOMYCIN CONSULT ACTIVE PRN (19:56)
--- NOTE | 2021-06-29 20:18 | XRay Report ---
SINGLE VIEW CHEST CLINICAL HISTORY: Sepsis. FINDINGS: An AP, portable, upright chest radiograph is compared to study dated 07/05/2017. The cardiom ediastinal silhouette is unremarkable. The lungs and pleural spaces are clear. No pneumothorax is see n. The skeletal structures are osteopenic. The bony thorax is grossly intact. IMPRESSION: No active disease in the chest. ACT 112: Negative or not required by law. Electronically signed by: Aden De La Cruz M.D. 06/29/2021 8:16 PM
[2021-06-29 20:25] LABS: INR 1.1 (0.9-1.1); Partial Thromboplastin Ratio 1.2; Partial Thromboplastin Time 32.4 Seconds (21.0-31.0); Prothrombin Time 11.4 Seconds (9.0-12.0)
[2021-06-29 20:29] LABS: Basophils # (auto) 0.01 K/uL (0-0.2); Basophils % (auto) 0.2 %; Eosinophils # (auto) 0.25 K/uL (0-0.5); Hematocrit (blood only) 43.7 % (37-47); Hemoglobin 14.4 g/dL (12.0-16.0); Immature Granulocytes # (auto) 0.01 K/uL (0.00-0.02); Immature Granulocytes % (auto) 0.2 %; Lymphocytes # (auto) 0.64 K/uL (1.2-3.4); Lymphocytes % (auto) 12.7 %; Mean Corpuscular Hemoglobin 27.8 pg (25-34); Mean Corpuscular Volume 84.4 fL (80-100); Mean Platelet Volume 10.1 fL (7.4-10.4); Monocytes # (auto) 0.36 K/uL (0.11-0.59); Monocytes % (auto) 7.1 %; Neutrophils # (auto) 3.77 K/uL (1.4-6.5); Neutrophils % (auto) 74.8 %; Platelet Count 209 K/uL (130-400); RDW Coefficient of Variation 13.7 % (11.5-14.5); RDW Standard Deviation 42.2 fL (36.4-46.3); Red Blood Count 5.18 M/uL (4.2-5.4); White Blood Count 5.04 K/uL (4.8-10.8)
[2021-06-29 20:53] LABS: Albumin Globulin Ratio 1.3 (0.9-2); Albumin Level 4.3 gm/dl (3.4-5.0); BUN Creatinine Ratio 15.7 (10-20); Bilirubin,Total 0.4 mg/dl (0.2-1.0); Calcium 9.3 mg/dl (8.5-10.1); Creatinine Clr Calc Pharmacy 60.3 ml/min; Est GFR (African American) 58.2 ml/min; Est GFR (Non-African American) 50.2 ml/min; Globulin 3.3 gm/dl (2.5-4.0); Magnesium 1.9 mg/dl (1.7-2.4); Potassium 4.1 mmol/L (3.5-5.1); Total Protein 7.6 gm/dl (6.0-8.3)
[2021-06-29 22:17] LABS: Influenza A virus by PCR Negative (Neg); Influenza B virus by PCR Negative (Neg); RSV by PCR Negative (Neg); SARS CoV2 RNA(COVID-19) InHosp NEGATIVE (Negative)
[2021-06-29 23:17] LABS: Appearance Urine Clear (Clear); Bacteria Urine Automated Negative (Negative); Blood Urine Trace (Negative); Color Urine Dark Yellow; Epithelial Cell Urine Auto >30 /lpf (0-5); Glucose Urine UA Negative (Negative); Ketones Urine 1+ (Negative); Leukocyte Esterase Urine Negative (Negative); Nitrite Urine Negative (Negative); Protein Urine Trace (Negative); Specific Gravity Urine 1.038 (1.000-1.030); Urobilinogen Urine Negative (Negative); pH Urine 5.5 (4.5-7.5)
[2021-06-29 23:19] LABS: Bilirubin Urine 1+ (Negative)
--- NOTE | 2021-06-29 23:34 | Emergency Department Note ---
History of Present Illness General Chief complaint: Nausea Stated complaint: CELLULITIS TREATMENT, DIZZINESS,CHILLS, NAUSEA Time Seen by Provider: 06/29/21 19:25 History of Present Illness Provider complaint: Left foot cellulitis Onset (ago): week(s) 1 Location: lower extremity and left Radiation: non-radiation Severity: moderate Pain Consistency: + constant Maximum Pain Intensity: 9 Current Pain Intensity: 9 Quality: + aching Relieved By: + none Exacerbated By: + none Associated symptoms: + fever/chills; no cough, no headaches, no malaise, no nausea/vomiting, no seizure or no shortness of breath 65-year-old female presents emergency department with left lower extremity cellulitis. Patient reports she was recently seen in the emergency department and started on antibiotics for left lower extremity cellulitis. She states she started having fevers yesterday and started breaking out into a rash. She denies any chest pain difficulty breathing headache nausea vomiting diarrhea or cough. Patient is unvaccinated against COVID-19. Home Medications Medication Instructions Recorded Confirmed Type sulfamethoxazole 800 1 tab PO BID 14 Days #28 tab 06/22/21 06/29/21 Rx mg-trimethoprim 160 mg tablet (Bactrim DS) Allergies Allergy/AdvReac Type Severity Reaction Status Date / Time Penicillins Allergy Intermediate HIVES Verified 06/29/21 20:07 propoxyphene Allergy Intermediate BELLS Verified 06/29/21 20:07 PALSY SYMPTOMS metronidazole AdvReac Severe DR STATES Verified 06/29/21 20:07 NOT TO TAKE. diphenhydramine AdvReac Intermediate NEAR Verified 06/29/21 20:07 SYNCOPE epinephrine AdvReac Intermediate NUMBNESS Verified 06/29/21 20:07 ibuprofen AdvReac Intermediate NUMBNESS, Verified 06/29/21 20:07 HEART PALPATIONS valdecoxib AdvReac Intermediate NUMBNESS, Verified 06/29/21 20:07 NEAR SYNOPAL ANITHISTAMINES AdvReac Intermediate DOES NOT Uncoded 06/29/21 20:07 TAKE THEM D/T NEAR SYNOPAL IV DYE AdvReac Unknown UNSURE OF Uncoded 06/29/21 20:07 RX, BUT WAS TOLD NOT TO HAVE IT Past Med/Surg History Medical History Herpes simplex History of basal cell carcinoma History of squamous cell carcinoma in situ of skin Hx of Lyme disease Laryngopharyngeal reflux Nontoxic single thyroid nodule Postmenopausal bleeding Postmenopausal status (age-related) (natural) Vitamin D deficiency Surgical History H/O dilation and curettage H/O oral surgery S/P adenoidectomy S/P dilation and curettage S/P skin biopsy S/P tonsillectomy Family History Mother Myocardial infarction Anemia Asthma COPD (chronic obstructive pulmonary disease) Coronary heart disease Migraine Father Alcohol abuse Cirrhosis Sister Depression Grandfather (Maternal) Lung cancer Liver cancer Other Arthritis Denies family history of Colon cancer Ovarian cancer Prostate cancer Breast cancer Social History Smoking Status: Never smoker Second Hand Exposure: No; Hx Alcohol Use: Yes (socially every couple months) Alcohol type: beer Hx Substance Use: No Preferred Language: Japanese Communication Ability: Effective Visual Impairment: No Limitations Hearing Ability: Normal marital status: Current Living Situation: Spouse current occupational status: unemployed 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 Feels Safe at Home: Yes Dental Care, Regularly: Yes Physical Activity Frequency: Daily Physical Activity Frequency Comment: gardening Seatbelt Use: always Sunscreen Use: Yes Review of Systems A total of 10 systems reviewed and were otherwise negative Physical Exam Vital Signs Vital Signs - 24 hr 06/29/21 19:02 06/29/21 19:42 06/29/21 19:57 Temperature 39.1 C H Temperature Source Temporal Artery Scan Pulse Rate 121 H Pulse Rate from SpO2 Sensor Respiratory Rate 20 22 Respiratory Effort / Characteristics Non-Labored Spontaneous Non-Labored Respiratory Depth Normal Normal Blood Pressure 108/73 Blood Pressure [Left Arm] Blood Pressure Mean 84 Blood Pressure Mean [Left Arm] Pulse Oximetry 95 99 Oxygen Delivery Method Room Air Room Air Sepsis New/Unexplained Change in Mental Status N/A Sepsis Action Taken by Nursing No Action Required 06/29/21 20:09 06/29/21 20:15 06/29/21 20:18 Temperature Temperature Source Pulse Rate 112 H 108 H Pulse Rate from SpO2 Sensor Respiratory Rate 18 22 22 Respiratory Effort / Characteristics Non-Labored Spontaneous Respiratory Depth Blood Pressure Blood Pressure [Left Arm] Blood Pressure Mean Blood Pressure Mean [Left Arm] Pulse Oximetry 98 97 97 Oxygen Delivery Method Room Air Sepsis New/Unexplained Change in Mental Status Sepsis Action Taken by Nursing 06/29/21 20:30 06/29/21 20:45 06/29/21 20:55 Temperature 37.8 C H 37.6 C H Temperature Source Oral Pulse Rate 103 H 99 H 102 H Pulse Rate from SpO2 Sensor 102 H Respiratory Rate 20 23 21 Respiratory Effort / Characteristics Non-Labored Respiratory Depth Normal Blood Pressure 124/58 L Blood Pressure [Left Arm] 124/58 L Blood Pressure Mean 80 Blood Pressure Mean [Left Arm] 80 Pulse Oximetry 98 96 96 Oxygen Delivery Method Room Air Sepsis New/Unexplained Change in Mental Status Sepsis Action Taken by Nursing 06/29/21 21:00 06/29/21 21:04 06/29/21 21:15 Temperature Temperature Source Pulse Rate 98 H 98 H 101 H Pulse Rate from SpO2 Sensor 98 H 98 H 101 H Respiratory Rate 23 22 24 Respiratory Effort / Characteristics Non-Labored Respiratory Depth Blood Pressure 126/71 120/87 Blood Pressure [Left Arm] Blood Pressure Mean 89 98 Blood Pressure Mean [Left Arm] Pulse Oximetry 96 96 94 Oxygen Delivery Method Room Air Sepsis New/Unexplained Change in Mental Status Sepsis Action Taken by Nursing 06/29/21 21:16 06/29/21 21:30 06/29/21 21:45 Temperature Temperature Source Pulse Rate 99 H 96 H 97 H Pulse Rate from SpO2 Sensor 99 H 95 H 97 H Respiratory Rate 18 22 18 Respiratory Effort / Characteristics Non-Labored Respiratory Depth Blood Pressure 105/57 L 122/68 111/68 Blood Pressure [Left Arm] Blood Pressure Mean 73 86 82 Blood Pressure Mean [Left Arm] Pulse Oximetry 95 95 94 Oxygen Delivery Method Room Air Sepsis New/Unexplained Change in Mental Status Sepsis Action Taken by Nursing 06/29/21 22:00 06/29/21 22:15 06/29/21 22:30 Temperature Temperature Source Pulse Rate 94 H 92 H Pulse Rate from SpO2 Sensor 95 H 92 H Respiratory Rate 18 23 20 Respiratory Effort / Characteristics Non-Labored Non-Labored Respiratory Depth Blood Pressure 104/65 112/72 Blood Pressure [Left Arm] Blood Pressure Mean 78 85 Blood Pressure Mean [Left Arm] Pulse Oximetry 96 95 95 Oxygen Delivery Method Room Air Room Air Sepsis New/Unexplained Change in Mental Status Sepsis Action Taken by Nursing 06/29/21 22:38 06/29/21 22:45 06/29/21 23:00 Temperature 36.9 C Temperature Source Oral Pulse Rate 94 H 93 H 90 Pulse Rate from SpO2 Sensor 95 H 92 H 91 H Respiratory Rate 23 24 Respiratory Effort / Characteristics Non-Labored Respiratory Depth Blood Pressure 103/72 112/64 Blood Pressure [Left Arm] Blood Pressure Mean 82 80 Blood Pressure Mean [Left Arm] Pulse Oximetry 94 95 95 Oxygen Delivery Method Room Air Sepsis New/Unexplained Change in Mental Status Sepsis Action Taken by Nursing 06/29/21 23:15 06/29/21 23:23 06/29/21 23:30 Temperature Temperature Source Pulse Rate 90 92 H Pulse Rate from SpO2 Sensor 90 93 H Respiratory Rate 23 20 18 Respiratory Effort / Characteristics Non-Labored Respiratory Depth Blood Pressure 97/67 L 115/86 Blood Pressure [Left Arm] Blood Pressure Mean 77 95 Blood Pressure Mean [Left Arm] Pulse Oximetry 96 95 96 Oxygen Delivery Method Room Air Sepsis New/Unexplained Change in Mental Status Sepsis Action Taken by Nursing Physical Exam GENERAL: She is oriented to person, place, and time. She appears well-developed and well-nourished. She does not appear distressed. HENT: Exam performed. -Head: Normocephalic and atraumatic. -Right Ear: External ear normal. No mastoid tenderness. -Left Ear: External ear normal. No mastoid tenderness. -Mouth/Throat: The oropharynx is clear and moist. No trismus in the jaw. No dental abscesses or uvula swelling. No oropharyngeal exudate or tonsillar abscesses. No intraoral lesions. EYES: Conjunctivae and EOM are normal. Pupils are equal, round, and reactive to light. Right eye exhibits no discharge. Left eye exhibits no discharge. No scleral icterus. NECK: Normal range of motion. Neck supple. No JVD present. No spinous process tenderness present. No carotid bruit present. No rigidity. No tracheal deviation and normal range of motion present. No Brudzinski's sign and no Kernig's sign noted. CV: Tachycardic rate, regular rhythm, normal heart sounds and intact distal pulses. There is no peripheral edema. Palpable radial pulses bue. PULM/CHEST: Effort normal and breath sounds normal. No respiratory distress. No stridor. She has no wheezes. She has no rales. -Chest Wall: She exhibits no tenderness. ABD: The abdomen is soft. Bowel sounds are normal. She has no distension. No mass is present. There is no tenderness. There is no rebound, no guarding, no Pratt's sign and no tenderness at McBurney's point. Rovsig negative : Conducted with female nursing dental practitioner Tonya at bedside. No vulvar or genital lesions. MUSC/SKEL: Normal range of motion. There is no peripheral edema, tenderness or deformity. LYMPH: No cervical adenopathy. NEURO: She is alert and oriented to person, place, and time. She has normal strength. No cranial nerve deficit or sensory deficit. Coordination and gait normal. GCS eye subscore is 4. GCS verbal subscore is 5. GCS motor subscore is 6. Cerebellar tests wnl. SKIN: There is mattress lesions over the chest and back. Lesions are macular. No vesicular lesions. Nikolsky negative. Over the dorsum of the left foot there is an erythematous warm lesion with surrounding ecchymosis. PSYCH: She has a normal mood and affect. Behavior is normal. Judgment and thought content normal. Course Course 1924: The patient was evaluated in room C9. A complete history and physical exam was performed Cardiac monitoring: An order was placed for continuous cardiac monitoring. The monitor shows a rate of 120 with sinus tachycardia rhythm Sepsis protocols initiated 2119: Vital signs stable. Labs within normal limits. Patient being treated with vancomycin for cellulitis. [facility] team notified. 2139: Called to bedside by nursing as the patient is having increasing redness over her face after starting vancomycin. Patient no respiratory distress. No lip or tongue swelling. Is thought that the patient could be having a reaction to the vancomycin. Pharmacy will be contacted about slowing the patient's rate of vancomycin down to prevent any sort of "red man" syndrome. Administered Medications Discontinued Medications Sodium Chloride (Nss 1000ml) 1,000 mls @ 999 mls/hr IV .[id number] JM Stop: 06/29/21 20:30 Last Infusion: 06/29/21 21:14 Dose: 0 mls/hr Documented by: [id number] Admin: 06/29/21 20:10 Dose: 999 mls/hr Documented by: [id number] Acetaminophen (Ofirmev) 1,000 mg in 100 mls @ 400 mls/hr IV NOW STA Stop: 06/29/21 19:40 Last Infusion: 06/29/21 21:14 Dose: 0 mls/hr Documented by: [id number] Admin: 06/29/21 20:10 Dose: 400 mls/hr Documented by: [id number] Vancomycin HCl 2,000 mg/ (Sodium Chloride) 540 mls @ 200 mls/hr IV NOW ONE Stop: 06/29/21 22:37 Last Infusion: 06/29/21 21:42 Dose: 100 mls/hr Documented by: [id number] Admin: 06/29/21 20:48 Dose: 200 mls/hr Documented by: [id number] Medical Decision Making Laboratory Data Result diagrams: 06/29/21 20:00 06/29/21 20:00 Lab Results 06/29/21 06/29/21 06/29/21 Range/Units 20:00 20:00 20:00 WBC 5.04 (4.8-10.8) K/uL RBC 5.18 (4.2-5.4) M/uL Hgb 14.4 (12.0-16.0) g/dL Hct 43.7 (37-47) % MCV 84.4 (80-100) fL MCH 27.8 (25-34) pg MCHC 33.0 (32-36) g/dL RDW Std Deviation 42.2 (36.4-46.3) fL RDW Coeff of Amos 13.7 (11.5-14.5) % Plt Count 209 (130-400) K/uL MPV 10.1 (7.4-10.4) fL Immature Gran % (Auto) 0.2 % Neut % (Auto) 74.8 % Lymph % (Auto) 12.7 % [place] % (Auto) 7.1 % Eos % (Auto) 5.0 % Baso % (Auto) 0.2 % Neut # (Auto) 3.77 (1.4-6.5) K/uL Lymph # (Auto) 0.64 L (1.2-3.4) K/uL [place] # (Auto) 0.36 (0.11-0.59) K/uL Eos # (Auto) 0.25 (0-0.5) K/uL Baso # (Auto) 0.01 (0-0.2) K/uL Immature Gran # (Auto) 0.01 (0.00-0.02) K/uL PT (9.0-12.0) Seconds INR (0.9-1.1) APTT (21.0-31.0) Seconds PTT Ratio Sodium 131 L (136-145) mmol/L Potassium 4.1 (3.5-5.1) mmol/L Chloride 101 (98-107) mmol/L Carbon Dioxide 19 L (21-32) mmol/L Anion Gap 11 (3-11) BUN 18 (6-23) mg/dl Creatinine 1.15 (0.6-1.2) mg/dl Est Cr Clr Drug Dosing 60.3 ml/min Est GFR ( Amer) 58.2 ml/min Est GFR (Non-Af Amer) 50.2 ml/min BUN/Creatinine Ratio 15.7 (10-20) Glucose 108 H (70-99(Fasting)) mg/dl Lactate 0.7 (0.4-2.0) mmol/L Calcium 9.3 (8.5-10.1) mg/dl Magnesium 1.9 (1.7-2.4) mg/dl Total Bilirubin 0.4 (0.2-1.0) mg/dl AST 23 (13-39) U/L ALT 15 (7-52) U/L Alkaline Phosphatase 88 (34-104) U/L Troponin I High Sens 6.0 (0-14) pg/ml Total Protein 7.6 (6.0-8.3) gm/dl Albumin 4.3 (3.4-5.0) gm/dl Globulin 3.3 (2.5-4.0) gm/dl Albumin/Globulin Ratio 1.3 (0.9-2) Procalcitonin (0-0.5) ng/ml Urine Color Urine Appearance (Clear) Urine pH (4.5-7.5) Ur Specific [place] (1.000-1.030) Urine Protein (Negative) Urine Glucose (UA) (Negative) Urine Ketones (Negative) Urine Blood (Negative) Urine Nitrite (Negative) Urine Bilirubin (Negative) Urine Urobilinogen (Negative) Ur Leukocyte Esterase (Negative) SARS-CoV-2 (PCR) (Negative) Influenza Type A (PCR) (Neg) Influenza Type B (PCR) (Neg) RSV (RT-PCR) (Neg) 06/29/21 06/29/21 06/29/21 Range/Units 20:00 20:00 Unknown WBC (4.8-10.8) K/uL RBC (4.2-5.4) M/uL Hgb (12.0-16.0) g/dL Hct (37-47) % MCV (80-100) fL MCH (25-34) pg MCHC (32-36) g/dL RDW Std Deviation (36.4-46.3) fL RDW Coeff of Amos (11.5-14.5) % Plt Count (130-400) K/uL MPV (7.4-10.4) fL Immature Gran % (Auto) % Neut % (Auto) % Lymph % (Auto) % [place] % (Auto) % Eos % (Auto) % Baso % (Auto) % Neut # (Auto) (1.4-6.5) K/uL Lymph # (Auto) (1.2-3.4) K/uL [place] # (Auto) (0.11-0.59) K/uL Eos # (Auto) (0-0.5) K/uL Baso # (Auto) (0-0.2) K/uL Immature Gran # (Auto) (0.00-0.02) K/uL PT 11.4 (9.0-12.0) Seconds INR 1.1 (0.9-1.1) APTT 32.4 H (21.0-31.0) Seconds PTT Ratio 1.2 Sodium (136-145) mmol/L Potassium (3.5-5.1) mmol/L Chloride (98-107) mmol/L Carbon Dioxide (21-32) mmol/L Anion Gap (3-11) BUN (6-23) mg/dl Creatinine (0.6-1.2) mg/dl Est Cr Clr Drug Dosing ml/min Est GFR ( Amer) ml/min Est GFR (Non-Af Amer) ml/min BUN/Creatinine Ratio (10-20) Glucose (70-99(Fasting)) mg/dl Lactate (0.4-2.0) mmol/L Calcium (8.5-10.1) mg/dl Magnesium (1.7-2.4) mg/dl Total Bilirubin (0.2-1.0) mg/dl AST (13-39) U/L ALT (7-52) U/L Alkaline Phosphatase (34-104) U/L Troponin I High Sens (0-14) pg/ml Total Protein (6.0-8.3) gm/dl Albumin (3.4-5.0) gm/dl Globulin (2.5-4.0) gm/dl Albumin/Globulin Ratio (0.9-2) Procalcitonin 0.09 (0-0.5) ng/ml Urine Color Urine Appearance (Clear) Urine pH (4.5-7.5) Ur Specific [place] (1.000-1.030) Urine Protein (Negative) Urine Glucose (UA) (Negative) Urine Ketones (Negative) Urine Blood (Negative) Urine Nitrite (Negative) Urine Bilirubin (Negative) Urine Urobilinogen (Negative) Ur Leukocyte Esterase (Negative) SARS-CoV-2 (PCR) NEGATIVE (Negative) Influenza Type A (PCR) Negative (Neg) Influenza Type B (PCR) Negative (Neg) RSV (RT-PCR) Negative (Neg) 06/29/21 Range/Units Unknown WBC (4.8-10.8) K/uL RBC (4.2-5.4) M/uL Hgb (12.0-16.0) g/dL Hct (37-47) % MCV (80-100) fL MCH (25-34) pg MCHC (32-36) g/dL RDW Std Deviation (36.4-46.3) fL RDW Coeff of Amos (11.5-14.5) % Plt Count (130-400) K/uL MPV (7.4-10.4) fL Immature Gran % (Auto) % Neut % (Auto) % Lymph % (Auto) % [place] % (Auto) % Eos % (Auto) % Baso % (Auto) % Neut # (Auto) (1.4-6.5) K/uL Lymph # (Auto) (1.2-3.4) K/uL [place] # (Auto) (0.11-0.59) K/uL Eos # (Auto) (0-0.5) K/uL Baso # (Auto) (0-0.2) K/uL Immature Gran # (Auto) (0.00-0.02) K/uL PT (9.0-12.0) Seconds INR (0.9-1.1) APTT (21.0-31.0) Seconds PTT Ratio Sodium (136-145) mmol/L Potassium (3.5-5.1) mmol/L Chloride (98-107) mmol/L Carbon Dioxide (21-32) mmol/L Anion Gap (3-11) BUN (6-23) mg/dl Creatinine (0.6-1.2) mg/dl Est Cr Clr Drug Dosing ml/min Est GFR ( Amer) ml/min Est GFR (Non-Af Amer) ml/min BUN/Creatinine Ratio (10-20) Glucose (70-99(Fasting)) mg/dl Lactate (0.4-2.0) mmol/L Calcium (8.5-10.1) mg/dl Magnesium (1.7-2.4) mg/dl Total Bilirubin (0.2-1.0) mg/dl AST (13-39) U/L ALT (7-52) U/L Alkaline Phosphatase (34-104) U/L Troponin I High Sens (0-14) pg/ml Total Protein (6.0-8.3) gm/dl Albumin (3.4-5.0) gm/dl Globulin (2.5-4.0) gm/dl Albumin/Globulin Ratio (0.9-2) Procalcitonin (0-0.5) ng/ml Urine Color Dark Yellow Urine Appearance Clear (Clear) Urine pH 5.5 (4.5-7.5) Ur Specific [place] 1.038 H (1.000-1.030) Urine Protein Trace H (Negative) Urine Glucose (UA) Negative (Negative) Urine Ketones 1+ H (Negative) Urine Blood Trace H (Negative) Urine Nitrite Negative (Negative) Urine Bilirubin 1+ H (Negative) Urine Urobilinogen Negative (Negative) Ur Leukocyte Esterase Negative (Negative) SARS-CoV-2 (PCR) (Negative) Influenza Type A (PCR) (Neg) Influenza Type B (PCR) (Neg) RSV (RT-PCR) (Neg) Imaging Data Radiologist's Impression: Chest X-Ray 06/29/21 19:27 SINGLE VIEW CHEST CLINICAL HISTORY: Sepsis. FINDINGS: An AP, portable, upright chest radiograph is compared to study dated 07/05/2017. The cardiomediastinal silhouette is unremarkable. The lungs and pleural spaces are clear. No pneumothorax is seen. The skeletal structures are osteopenic. The bony thorax is grossly intact. IMPRESSION: No active disease in the chest. ACT 112: Negative or not required by law. Electronically signed by: Aden De La Cruz M.D. 06/29/2021 8:16 PM ECG Data Indication: + tachycardia Rate (beats per minute): 107 Rhythm: + sinus tachycardia ECG Intervals/blocks: + Normal QRS, + Normal MS and + Normal QT-c ECG ST segments: + Normal ST segments ECG Findings: + LVH MDM Narrative 1924: The patient was evaluated in room C9. A complete history and physical exam was performed Cardiac monitoring: An order was placed for continuous cardiac monitoring. The monitor shows a rate of 120 with sinus tachycardia rhythm Sepsis protocols initiated 2119: Vital signs stable. Labs within normal limits. Patient being treated with vancomycin for cellulitis. [facility] [place] team notified. 2139: Called to bedside by nursing as the patient is having increasing redness over her face after starting vancomycin. Patient no respiratory distress. No lip or tongue swelling. Is thought that the patient could be having a reaction to the vancomycin. Pharmacy will be contacted about slowing the patient's rate of vancomycin down to prevent any sort of "red man" syndrome. Impression & Plan Cellulitis Discharge Plan Visit Data Chief Complaint: Nausea Stated Complaint: CELLULITIS TREATMENT, DIZZINESS,CHILLS, NAUSEA Discharge Problem: Cellulitis Patient Disposition: Admitted As Inpatient Forms Stand Alone Forms: My [facility] Prescriptions Prescriptions: No Action sulfamethoxazole-trimethoprim [Bactrim DS] 800-160 mg tablet 1 tab PO BID 14 Days Qty: 28 RF: 0 Referrals Referrals: Pro,Samy Cartwright MD [Primary Care Provider] -
--- NOTE | 2021-06-30 00:19 | History & Physical Report ---
Date of Service June 30, 2021 Assessment & Plan (1) Cellulitis of left foot: Plan: Stop Bactrim, and note as allergy Patient was started by the ED on vancomycin IV, and has been developing "red man" syndrome. Will stop vancomycin, and not noted as an allergy Placed on daptomycin 4 mg/kg IV daily Follow clinical examination Plan: Drug reaction- Patient has mild rash on trunk No signs of PTEN/Kirkpatrick-Leo syndrome Symptoms that she presented with more likely associated with allergic reactions and with sepsis from foot infection, but both are still possible History of Present Illness Chief Complaint: The patient presents to the emergency department with complaint of dizziness, chills, fatigue and nausea while being treated for a left foot cellulitis that began after dropping a concrete block on her foot. Yesterday she began to develop temperatures, and started breaking out in a generalized rash. Primary Care Provider: Samy Hsu MD The patient is a 65-year-old female with a past medical history including several allergies/sensitivities to medications, who presents to the emergency department with symptoms as noted above while on Bactrim twice daily for a left foot cellulitis. She denies any recent travels or sick exposures. Allergies Allergy/AdvReac Type Severity Reaction Status Date / Time Penicillins Allergy Intermediate HIVES Verified 06/29/21 20:07 propoxyphene Allergy Intermediate BELLS Verified 06/29/21 20:07 PALSY SYMPTOMS metronidazole AdvReac Severe DR STATES Verified 06/29/21 20:07 NOT TO TAKE. diphenhydramine AdvReac Intermediate NEAR Verified 06/29/21 20:07 SYNCOPE epinephrine AdvReac Intermediate NUMBNESS Verified 06/29/21 20:07 ibuprofen AdvReac Intermediate NUMBNESS, Verified 06/29/21 20:07 HEART PALPATIONS valdecoxib AdvReac Intermediate NUMBNESS, Verified 06/29/21 20:07 NEAR SYNOPAL ANITHISTAMINES AdvReac Intermediate DOES NOT Uncoded 06/29/21 20:07 TAKE THEM D/T NEAR SYNOPAL IV DYE AdvReac Unknown UNSURE OF Uncoded 06/29/21 20:07 RX, BUT WAS TOLD NOT TO HAVE IT Home Medications Medication Instructions Recorded Confirmed Type sulfamethoxazole 800 1 tab PO BID 14 Days #28 tab 06/22/21 06/29/21 Rx mg-trimethoprim 160 mg tablet (Bactrim DS) Past Med/Surg History Medical History Herpes simplex History of basal cell carcinoma History of squamous cell carcinoma in situ of skin Hx of Lyme disease Laryngopharyngeal reflux Nontoxic single thyroid nodule Postmenopausal bleeding Postmenopausal status (age-related) (natural) Vitamin D deficiency Surgical History H/O dilation and curettage H/O oral surgery S/P adenoidectomy S/P dilation and curettage S/P skin biopsy S/P tonsillectomy Family History Mother Myocardial infarction Anemia Asthma COPD (chronic obstructive pulmonary disease) Coronary heart disease Migraine Father Alcohol abuse Cirrhosis Sister Depression Grandfather (Maternal) Lung cancer Liver cancer Other Arthritis Denies family history of Colon cancer Ovarian cancer Prostate cancer Breast cancer Social History Smoking Status: Never smoker Second Hand Exposure: No; Hx Alcohol Use: Yes (socially every couple months) Alcohol type: beer Hx Substance Use: No Preferred Language: Greek Communication Ability: Effective Visual Impairment: No Limitations Hearing Ability: Normal marital status: Current Living Situation: Spouse current occupational status: unemployed 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 Feels Safe at Home: Yes Dental Care, Regularly: Yes Physical Activity Frequency: Daily Physical Activity Frequency Comment: gardening Seatbelt Use: always Sunscreen Use: Yes Review of Systems Review of Systems: The patient denies chest pain, palpitations, shortness of breath, dyspnea on exertion, cough, sore throat, chills, sweats, vomiting, diarrhea , constipation, abdominal pain, pelvic pain, blood in urine or stool, dysuria, urinary frequency or urgency, memory loss, loss of consciousness, imbalance, focal or generalized weakness, numbness or tingling in arms, gene ralized arthralgias or myalgias, back or neck pain, or night sweats. The review of systems is otherwise negative other than for that already noted above, and at least 10 systems have been reviewed. Physical Exam Physical Exam: The patient is awake, alert and oriented 3, well developed and well nourished, normocephalic and atraumatic, lying in bed and in no acute distress. HEENT--PERRL, EOMI, mucous membranes and oropharynx normal. Neck--supple. No JVD. No bruits. Thyroid normal, trachea midline, no adenopathy. Heart--normal S1 and S2. No murmurs, rubs or gallops. Lungs--clear bilaterally, no respiratory distress, no accessory muscle use. Abdomen--normal bowel sounds and soft. Nontender. Nondistended. Obese Extremities--right lower extremity no edema or erythema. Left foot with 3+ edema and mild erythema on dorsum of foot extending over MTPs Dermatologic--normal except above Neurologic--cranial nerves II through XII grossly intact. Rheumatologic--limited normal range of motion involving left foot Psychiatric--normal affect. Results & Data Results & Data ([facility]) Vital Signs (Past 12 Hours) Vital Signs Temp Pulse Resp BP BP Pulse Ox 06/29/21 23:30 92 H 18 115/86 96 06/29/21 23:23 20 95 06/29/21 23:15 90 23 97/67 L 96 06/29/21 23:00 36.9 C 90 24 112/64 95 06/29/21 22:45 93 H 23 103/72 95 06/29/21 22:38 94 H 94 06/29/21 22:30 20 95 06/29/21 22:15 92 H 23 112/72 95 06/29/21 22:00 94 H 18 104/65 96 06/29/21 21:45 97 H 18 111/68 94 06/29/21 21:30 96 H 22 122/68 95 06/29/21 21:16 99 H 18 105/57 L 95 06/29/21 21:15 101 H 24 94 06/29/21 21:04 98 H 22 120/87 96 06/29/21 21:00 98 H 23 126/71 96 06/29/21 20:55 37.6 C H 102 H 21 124/58 L 124/58 L 96 06/29/21 20:45 99 H 23 96 06/29/21 20:30 37.8 C H 103 H 20 98 06/29/21 20:18 22 97 06/29/21 20:15 108 H 22 97 06/29/21 20:09 112 H 18 98 06/29/21 19:57 22 99 06/29/21 19:02 39.1 C H 121 H 20 108/73 95 Laboratory Results Laboratory Results WBC 5.04 K/uL (4.8-10.8) 06/29/21 20:00 RBC 5.18 M/uL (4.2-5.4) 06/29/21 20:00 Hgb 14.4 g/dL (12.0-16.0) 06/29/21 20:00 Hct 43.7 % (37-47) 06/29/21 20:00 MCV 84.4 fL (80-100) 06/29/21 20:00 MCH 27.8 pg (25-34) 06/29/21 20:00 MCHC 33.0 g/dL (32-36) 06/29/21 20:00 RDW Std Deviation 42.2 fL (36.4-46.3) 06/29/21 20:00 RDW Coeff of Amos 13.7 % (11.5-14.5) 06/29/21 20:00 Plt Count 209 K/uL (130-400) 06/29/21 20:00 MPV 10.1 fL (7.4-10.4) 06/29/21 20:00 Immature Gran % (Auto) 0.2 % 06/29/21 20:00 Neut % (Auto) 74.8 % 06/29/21 20:00 Lymph % (Auto) 12.7 % 06/29/21 20:00 Coffee % (Auto) 7.1 % 06/29/21 20:00 Eos % (Auto) 5.0 % 06/29/21 20:00 Baso % (Auto) 0.2 % 06/29/21 20:00 Neut # (Auto) 3.77 K/uL (1.4-6.5) 06/29/21 20:00 Lymph # (Auto) 0.64 K/uL (1.2-3.4) L 06/29/21 20:00 Coffee # (Auto) 0.36 K/uL (0.11-0.59) 06/29/21 20:00 Eos # (Auto) 0.25 K/uL (0-0.5) 06/29/21 20:00 Baso # (Auto) 0.01 K/uL (0-0.2) 06/29/21 20:00 Immature Gran # (Auto) 0.01 K/uL (0.00-0.02) 06/29/21 20:00 PT 11.4 Seconds (9.0-12.0) 06/29/21 20:00 INR 1.1 (0.9-1.1) 06/29/21 20:00 APTT 32.4 Seconds (21.0-31.0) H 06/29/21 20:00 PTT Ratio 1.2 06/29/21 20:00 Sodium 131 mmol/L (136-145) L 06/29/21 20:00 Potassium 4.1 mmol/L (3.5-5.1) 06/29/21 20:00 Chloride 101 mmol/L (98-107) 06/29/21 20:00 Carbon Dioxide 19 mmol/L (21-32) L 06/29/21 20:00 Anion Gap 11 (3-11) 06/29/21 20:00 BUN 18 mg/dl (6-23) 06/29/21 20:00 Creatinine 1.15 mg/dl (0.6-1.2) 06/29/21 20:00 Est Cr Clr Drug Dosing 60.3 ml/min 06/29/21 20:00 Est GFR ( Amer) 58.2 ml/min 06/29/21 20:00 Est GFR (Non-Af Amer) 50.2 ml/min 06/29/21 20:00 BUN/Creatinine Ratio 15.7 (10-20) 06/29/21 20:00 Glucose 108 mg/dl (70-99(Fasting)) H 06/29/21 20:00 Lactate 0.7 mmol/L (0.4-2.0) 06/29/21 20:00 Calcium 9.3 mg/dl (8.5-10.1) 06/29/21 20:00 Magnesium 1.9 mg/dl (1.7-2.4) 06/29/21 20:00 Total Bilirubin 0.4 mg/dl (0.2-1.0) 06/29/21 20:00 AST 23 U/L (13-39) 06/29/21 20:00 ALT 15 U/L (7-52) 06/29/21 20:00 Alkaline Phosphatase 88 U/L (34-104) 06/29/21 20:00 Troponin I High Sens 6.0 pg/ml (0-14) 06/29/21 20:00 Total Protein 7.6 gm/dl (6.0-8.3) 06/29/21 20:00 Albumin 4.3 gm/dl (3.4-5.0) 06/29/21 20:00 Globulin 3.3 gm/dl (2.5-4.0) 06/29/21 20:00 Albumin/Globulin Ratio 1.3 (0.9-2) 06/29/21 20:00 Procalcitonin 0.09 ng/ml (0-0.5) 06/29/21 20:00 Urine Color Dark Yellow 06/29/21 Unknown Urine Appearance Clear (Clear) 06/29/21 Unknown Urine pH 5.5 (4.5-7.5) 06/29/21 Unknown Ur Specific Jackson 1.038 (1.000-1.030) H 06/29/21 Unknown Urine Protein Trace (Negative) H 06/29/21 Unknown Urine Glucose (UA) Negative (Negative) 06/29/21 Unknown Urine Ketones 1+ (Negative) H 06/29/21 Unknown Urine Blood Trace (Negative) H 06/29/21 Unknown Urine Nitrite Negative (Negative) 06/29/21 Unknown Urine Bilirubin 1+ (Negative) H 06/29/21 Unknown Urine Urobilinogen Negative (Negative) 06/29/21 Unknown Ur Leukocyte Esterase Negative (Negative) 06/29/21 Unknown Urine WBC (Auto) 10-30 /hpf (0-5) H 06/29/21 Unknown Urine RBC (Auto) 5-10 /hpf (0-4) H 06/29/21 Unknown U Hyaline Cast (Auto) 1-5 /lpf (0-5) 06/29/21 Unknown U Epithel Cells (Auto) >30 /lpf (0-5) H 06/29/21 Unknown Urine Bacteria (Auto) Negative (Negative) 06/29/21 Unknown Ur Renal Epithelial Cell Not Reportable 06/29/21 Unknown Urine Mucus Present (None Prsent) A 06/29/21 Unknown SARS-CoV-2 (PCR) NEGATIVE (Negative) 06/29/21 Unknown Influenza Type A (PCR) Negative (Neg) 06/29/21 Unknown Influenza Type B (PCR) Negative (Neg) 06/29/21 Unknown RSV (RT-PCR) Negative (Neg) 06/29/21 Unknown Impressions Chest X-Ray 06/29/21 19:27 SINGLE VIEW CHEST CLINICAL HISTORY: Sepsis. FINDINGS: An AP, portable, upright chest radiograph is compared to study dated 07/05/2017. The cardiomediastinal silhouette is unremarkable. The lungs and pleural spaces are clear. No pneumothorax is seen. The skeletal structures are osteopenic. The bony thorax is grossly intact. IMPRESSION: No active disease in the chest. ACT 112: Negative or not required by law. Electronically signed by: Aden De La Cruz M.D. 06/29/2021 8:16 PM Code Status & VTE Plan Code Status Full code VTE Prophylaxis Plan VTE Prophylaxis will be ordered: Yes PG Care Time/CCT Total # of Minutes Spent Total Time Spent with Patient: Total time spent is greater than 50% in coordination of care (as documented) at patient's floor/unit and/or counseling patient: Coding Level of Care Code 01028 Initial Inpt Care Lvl 2 Diagnoses Cellulitis of left foot L03.116
[2021-06-30 00:33] LABS: Mucus Urine Present (None Prsent)
[2021-06-30] MEDS ORDERED: ACETAMINOPHEN 325 MG TAB PO PRN (01:59)
[2021-06-30] MEDS ORDERED: ONDANSETRON INJ 2 MG/ML 2 ML VIAL IV PRN (01:59)
[2021-06-30] MEDS ORDERED: DAPTOmycin 300 MG in SYRINGE 0 ML IV SCH (06:00)
[2021-06-30 07:07] LABS: Basophils # (auto) 0.01 K/uL (0-0.2); Basophils % (auto) 0.2 %; Eosinophils # (auto) 0.42 K/uL (0-0.5); Eosinophils % (auto) 10.2 %; Hematocrit (blood only) 42.3 % (37-47); Hemoglobin 13.8 g/dL (12.0-16.0); Immature Granulocytes # (auto) 0.02 K/uL (0.00-0.02); Immature Granulocytes % (auto) 0.5 %; Lymphocytes # (auto) 0.75 K/uL (1.2-3.4); Lymphocytes % (auto) 18.2 %; Mean Corpuscular Hemoglobin 27.5 pg (25-34); Mean Corpuscular Hgb Conc 32.6 g/dL (32-36); Mean Corpuscular Volume 84.4 fL (80-100); Mean Platelet Volume 10.5 fL (7.4-10.4); Monocytes # (auto) 0.19 K/uL (0.11-0.59); Monocytes % (auto) 4.6 %; Neutrophils # (auto) 2.74 K/uL (1.4-6.5); Neutrophils % (auto) 66.3 %; Platelet Count 188 K/uL (130-400); RDW Coefficient of Variation 13.8 % (11.5-14.5); RDW Standard Deviation 42.3 fL (36.4-46.3); Red Blood Count 5.01 M/uL (4.2-5.4); White Blood Count 4.13 K/uL (4.8-10.8)
--- NOTE | 2021-06-30 07:07 | Hospitalist Progress Note ---
Date of Service June 30, 2021 Assessment & Plan (1) Cellulitis of left foot: Plan: 65-year-old female with eczema, HLD, and multiple medication allergies who presents w/ 2 weeks of L foot hematoma s/p dropping a heavy object. She presents w/ fever and new rash 7 days into a course of Bactrim started in the outpatient setting for presumed cellulitis. Hematoma of left foot w/ cellulitis - Allergy list updated for Bactrim, vancomycin, Ancef. - Patient developed possible red man syndrome after receiving IV vancomycin in the ED - Dapto was ordered but patient refused because of fear of allergy - Patient was re-examined and started on Ancef for MSSA coverage. Her rash worsened, so this was discontinued and patient will be started on Rocephin (lower cross-reactivity w/ penicillin allergy). - Per vascular ultrasound, some septations, but fluid collection most consistent w/ hematoma - If patient tolerates Rocephin and improves clinically, consider d/c home on PO cefdinir Drug reaction Patient has mild rash on face, trunk, and upper extremities No signs of PTEN/Kirkpatrick-Leo syndrome FEN/GI: regular diet. No IV fluids. ppx: Lovenox qpm dispo: med/surg code: full (2) Hematoma: (3) Dyslipidemia: (4) Rash: (5) Eczema: Admission and Anticipated Discharge Date Admission Date: June 30, 2021 Supervising Physician Co-Signing Physician Notes I personally examined the patient and verified all olmstead points of history and exam, discussed case, and agree with decision making with Dr Bright rash a little better than it was but still galdamez some benadryl helped a little foot red swelling ongoing vitals noted skin diffuse erythematous plaques and patches face and arms > elsewhere. L foot large ~3-4cm circumferential area of fluctuance and tenderness (although softly fluctuant) with surrounding erythema and tenderness foot wound, probable cellulitis - no sepsis/septic shock, no clear need for MRSA coverage unless fails MSSA - discussed risk/benefit - trial of ancef - if does well then home on keflex. if worsens then can consider dapto --> doxy. area of fluctuance - probably hematoma/seroma but would like to r/o abscess - discussed aspiration vs US - for now US diffuse bactrim related rash - benadryl for now, will hold on steroids so as not to skew clinical picture of response or lack thereof to foot wound treatment DVT proph - ambulation (start pharmacologic if hospitalization becomes more prolonged or if she's not mobile at all) Subjective No current f/c. Had fever/chills after vanc yesterday. 2 wks since dropped 150 lb concrete chair/stool on L foot. Not utd tetanus. She had taken 8 days of Bactrim. Review of Systems Review of Systems: All systems reviewed & are unremarkable except as noted in HPI & below Physical Exam Physical Exam: General: Grossly A&O. NAD. Cooperative. HEENT: Atraumatic, normocephalic. EOMI Pulm: CTAB. -wheezes, -rales, -rhonchi. No respiratory distress. Cardiac: RRR, -mrg. No LE edema. Abdominal: Nontender, nondistended, soft. Inch: 2 inch diameter fluctuant area of L dorsum of foot. Mild erythema. Mild erythematous rash on face, trunk, and arms. No excoriation or drainage. Msk: Moving toes and ankles w/o difficulty. Results & Data Results & Data ([facility]) Vital Signs (Past 12 Hours) Vital Signs Temp Pulse Pulse Resp BP BP Pulse Ox 06/30/21 01:50 36.7 C 91 H 16 145/83 H 97 06/30/21 01:15 90 20 142/78 H 97 06/30/21 01:00 127/76 06/30/21 00:46 88 20 129/83 98 06/30/21 00:31 97 06/30/21 00:26 85 18 140/82 97 06/29/21 23:30 92 H 18 115/86 96 06/29/21 23:23 20 95 06/29/21 23:15 90 23 97/67 L 96 06/29/21 23:00 36.9 C 90 24 112/64 95 06/29/21 22:45 93 H 23 103/72 95 06/29/21 22:38 94 H 94 06/29/21 22:30 20 95 06/29/21 22:15 92 H 23 112/72 95 06/29/21 22:00 94 H 18 104/65 96 06/29/21 21:45 97 H 18 111/68 94 06/29/21 21:30 96 H 22 122/68 95 06/29/21 21:16 99 H 18 105/57 L 95 06/29/21 21:15 101 H 24 94 06/29/21 21:04 98 H 22 120/87 96 06/29/21 21:00 98 H 23 126/71 96 06/29/21 20:55 37.6 C H 102 H 21 124/58 L 124/58 L 96 06/29/21 20:45 99 H 23 96 06/29/21 20:30 37.8 C H 103 H 20 98 06/29/21 20:18 22 97 06/29/21 20:15 108 H 22 97 06/29/21 20:09 112 H 18 98 06/29/21 19:57 22 99 Resident Activity Tracking Resident Involvement: Resident Care Provided Care Provided: Adult [facility] Medicine
[2021-06-30 07:42] LABS: Albumin Globulin Ratio 1.3 (0.9-2); BUN Creatinine Ratio 20.9 (10-20); Bilirubin,Total 0.4 mg/dl (0.2-1.0); Calcium 8.9 mg/dl (8.5-10.1); Creatinine Clr Calc Pharmacy 80.7 ml/min; Est GFR (African American) 82.7 ml/min; Est GFR (Non-African American) 71.4 ml/min; Globulin 3.1 gm/dl (2.5-4.0); Potassium 3.8 mmol/L (3.5-5.1); Total Protein 7.1 gm/dl (6.0-8.3)
[2021-06-30] MEDS ORDERED: diphenhydrAMINE Capsule 25 MG CAP PO ONE (08:30)
[2021-06-30] MEDS ORDERED: ceFAZolin 1000MG 1,000 MG/7.5 ML SYR IV SCH (13:00)
[2021-06-30] MEDS: FAMOTIDINE 10 MG TABLET PO SCH ×2 (13:18→20:43)
[2021-06-30] MEDS ORDERED: diphenhydrAMINE Capsule 25 MG CAP ONE (14:20)
[2021-06-30] MEDS: diphenhydrAMINE Capsule 25 MG CAP PO PRN ×2 (14:24→22:38)
--- NOTE | 2021-06-30 17:19 | Ultrasound Report ---
US extremity non-vascular ltd CLINICAL HISTORY: LLE, rule out hematoma versus abscess TECHNIQUE: Real-time grayscale sonographic images of the left foot were obtained. Comparison: None available at the time of this dictation. FINDINGS/IMPRESSION: A complex fluid collection with the appearance of some septations is seen in the left foot without strong surrounding Doppler signal. This is favored to represent a hematoma. ACT 112: Negative or not required by law. Electronically signed by: Karlo Christiansen M.D. 06/30/2021 5:18 PM
[2021-06-30] MEDS ORDERED: ENOXAPARIN INJ 40 MG/0.4 ML SYR SQ SCH (21:00)
[2021-06-30] MEDS ORDERED: cefTRIAXone SODIUM 1,000 MG in DEXTROSE 5% 50 ML IV SCH (23:15)
[2021-07-01 07:50] LABS: Basophils # (auto) 0.03 K/uL (0-0.2); Basophils % (auto) 0.8 %; Eosinophils # (auto) 0.44 K/uL (0-0.5); Eosinophils % (auto) 12.4 %; Hematocrit (blood only) 38.3 % (37-47); Hemoglobin 12.6 g/dL (12.0-16.0); Immature Granulocytes # (auto) 0.01 K/uL (0.00-0.02); Immature Granulocytes % (auto) 0.3 %; Lymphocytes # (auto) 1.38 K/uL (1.2-3.4); Lymphocytes % (auto) 38.8 %; Mean Corpuscular Hemoglobin 27.8 pg (25-34); Mean Corpuscular Hgb Conc 32.9 g/dL (32-36); Mean Corpuscular Volume 84.5 fL (80-100); Monocytes % (auto) 8.4 %; Neutrophils % (auto) 39.3 %; Platelet Count 200 K/uL (130-400); RDW Coefficient of Variation 13.7 % (11.5-14.5); RDW Standard Deviation 42.9 fL (36.4-46.3); Red Blood Count 4.53 M/uL (4.2-5.4); White Blood Count 3.56 K/uL (4.8-10.8)
[2021-07-01] MEDS: FAMOTIDINE 10 MG TABLET PO SCH (07:53)
[2021-07-01 08:27] LABS: Albumin Globulin Ratio 1.3 (0.9-2); Albumin Level 3.6 gm/dl (3.4-5.0); BUN Creatinine Ratio 22.5 (10-20); Bilirubin,Total 0.3 mg/dl (0.2-1.0); Calcium 8.8 mg/dl (8.5-10.1); Creatinine Clr Calc Pharmacy 86.7 ml/min; Est GFR (African American) 90.3 ml/min; Est GFR (Non-African American) 77.9 ml/min; Globulin 2.8 gm/dl (2.5-4.0); Magnesium 1.9 mg/dl (1.7-2.4); Potassium 3.7 mmol/L (3.5-5.1); Total Protein 6.4 gm/dl (6.0-8.3)
[2021-07-01] MEDS ORDERED: CEFDINIR 300 MG CAP PO SCH (10:00)
--- NOTE | 2021-07-01 10:36 | Discharge Summary ---
Date of Service July 01, 2021 Admission HPI Per Admitting Provider The patient is a 65-year-old female with a past medical history including several allergies/sensitivities to medications, who presents to the emergency department with symptoms as noted above while on Bactrim twice daily for a left foot cellulitis. She denies any recent travels or sick exposures. Admission Exam Per Admitting Provider The patient is awake, alert and oriented 3, well developed and well nourished, normocephalic and atraumatic, lying in bed and in no acute distress. HEENT--PERRL, EOMI, mucous membranes and oropharynx normal. Neck--supple. No JVD. No bruits. Thyroid normal, trachea midline, no adenopathy. Heart--normal S1 and S2. No murmurs, rubs or gallops. Lungs--clear bilaterally, no respiratory distress, no accessory muscle use. Abdomen--normal bowel sounds and soft. Nontender. Nondistended. Obese Extremities--right lower extremity no edema or erythema. Left foot with 3+ edema and mild erythema on dorsum of foot extending over MTPs Dermatologic--normal except above Neurologic--cranial nerves II through XII grossly intact. Rheumatologic--limited normal range of motion involving left foot Psychiatric--normal affect. Principal Diagnosis cellulitis Discharge Exam Constitutional WD/WN, vitals as above no acute distress Eyes + anicteric sclerae ENMT external ear and nose normal, oropharynx normal Neck normal visual inspection and trachea midline Respiratory normal respiratory effort, lungs clear to auscultation Musculoskeletal Head/Neck/Chest: normocephalic and head atraumatic + firm swelling on top of left foot with overlying erythema and bruising Skin + rash (diffuse maculopapular rash on b/l upper extremities and chest ) Psychiatric A+Ox3, euthymic affect Discharge Data Allergies Allergy/AdvReac Type Severity Reaction Status Date / Time Penicillins Allergy Intermediate HIVES Verified 06/29/21 20:07 propoxyphene Allergy Intermediate BELLS Verified 06/29/21 20:07 PALSY SYMPTOMS metronidazole AdvReac Severe DR STATES Verified 06/29/21 20:07 NOT TO TAKE. epinephrine AdvReac Intermediate NUMBNESS Verified 06/29/21 20:07 ibuprofen AdvReac Intermediate NUMBNESS, Verified 06/29/21 20:07 HEART PALPATIONS valdecoxib AdvReac Intermediate NUMBNESS, Verified 06/29/21 20:07 NEAR SYNOPAL cefazolin [From Ancef] AdvReac Mild rash Verified 07/01/21 15:07 sulfamethoxazole AdvReac rash Verified 06/30/21 12:22 [From Bactrim] trimethoprim [From Bactrim] AdvReac rash Verified 06/30/21 12:22 vancomycin AdvReac red man Verified 06/30/21 12:22 syndrome ANITHISTAMINES AdvReac Intermediate DOES NOT Uncoded 06/29/21 20:07 TAKE THEM D/T NEAR SYNOPAL IV DYE AdvReac Unknown UNSURE OF Uncoded 06/29/21 20:07 RX, BUT WAS TOLD NOT TO HAVE IT Consultations 06/29/21 21:22 ED Decision to Admit Stat Ordered Studies 06/30/21 11:19 US point of care ultrasound Urgent 06/30/21 16:45 US extremity non-vascular ltd Stat Hospital Course (1) Cellulitis of left foot: 65-year-old female was admitted for failed outpatient management of left foot cellulitis. Hematoma of left foot w/ cellulitis - patient dropped a heavy object on the top of her left foot ~ 2 weeks prior to admission, which resulted in hematoma formation. An ultrasound was performed while inpatient and the appearance favored hematoma over abscess. - she did appear to have overlaying cellulitis, for which she was started on a course of Bactrim in the outpatient setting. However, after taking the Bactrim for a week, she developed an itchy, maculopapular total body rash, thought to be due to a drug reaction. She does have a history of allergies/intolerances to many medications. Initially she was placed on Vancomycin, but developed "red man syndrome." She was transitioned to Keflex, however this also worsened her underlying rash. She did tolerate ceftriaxone - and its oral equivalent cefdinir. She will complete a total of a 5 day course. Drug reaction - secondary to Bactrim, Vancomycin and Keflex. Allergy list updated in chart. (2) Hematoma: (3) Dyslipidemia: (4) Rash: (5) Eczema: Total Time Total Time Spent Total Time Spent (In Minutes): see attending attestation Discharge Plan Discharge Items Patient Disposition: Home - Self-Care Reason For Visit: CELLULITIS, DRUG REACTION Discharge Diagnosis: Cellulitis Activity: Resume your previous activity Non-emergency contact: Primary Care Provider Call non-emergency contact if: you have any medication questions Follow-up/Referrals: Samy Hsu MD [Primary Care Provider] - 07/22/21 10:30 am Diet: Regular Addtl Attending Provider Instructions: You were hospitalized at [facility] for evaluation of a possible infection of the left foot. You were treated with IV antibiotics - some of which caused you to break out in a rash. We updated your allergy list in our chart accordingly. For your personal records, we recommend you not take Bactrim, Vancomycin or Keflex in the future. You did tolerate the antibiotic cefdinir well - we would like you to take Cefdinir, 300mg twice daily for an additional 3 days after discharge. A script for this was sent to your pharmacy. You may take Benadryl on an as needed basis for rash/hives. If you ever develop swelling of your lips, tongue or mouth, please come to the emergency department immediatley. We did order an ultrasound to look closer at the swelling on the top of the left foot. It appeared to resemble a blood clot rather than an abscess. Your body will naturally dissolve this blood clot with time. There is no need to take a bl ood thinner for this reason. Please follow up with Dr. Hsu in 1-2 weeks for re-evaluation of your foot. Pending Studies at Discharge: No Stand-Alone Forms: My [facility], Smoking Cessation Medications and DC Order Prescriptions: New cefdinir 300 mg Capsule 300 mg PO BID 3 Days Qty: 6 RF: 0 Discontinued sulfamethoxazole-trimethoprim [Bactrim DS] 800-160 mg tablet 1 tab PO BID 14 Days Qty: 28 RF: 0 Discharge Orders: Discharge Order (Routine); Ordered 07/01/21 Ordered By: Annemarie Raines Admission Data Admit Date/Time: 06/30/21 00:18 Attending Provider: Jose Shi Admit Provider: Wes Shannon Primary Care Provider: Samy Hsu Other Providers: Wes Shannon Other Interventions: Discharge Summary Assessment (RN) Last Done: 07/01/21 13:28 Supervising Physician Co-Signing Physician Notes I personally examined the patient and verified all olmstead points of history and exam, discussed case, and agree with decision making with Dr Thal foot doing better, rash doing better. vitals noted skin diffuse erythematous plaques and patches face and arms much improved/much less red and inflamed. L foot large ~3-4cm circumferential area of fluctuance less elevated, surrounding redness has almost entirely resolved foot wound, probable cellulitis - no sepsis/septic shock, no clear need for MRSA coverage unless fails MSSA - home on cephalosporin diffuse bactrim related rash - improving DVT proph - ambulation Resident Activity Tracking Resident Involvement: Resident Care Provided Care Provided: Adult Hospital Medicine
[2021-07-01] MEDS: diphenhydrAMINE Capsule 25 MG CAP PO PRN (13:20)
--- NOTE | 2021-07-01 15:49 | Electrocardiogram Report ---
Test Reason : Blood Pressure : / mmHG Vent. Rate : 107 BPM Atrial Rate : 107 BPM P-R Int : 168 ms QRS Dur : 082 ms QT Int : 356 ms P-R-T Axes : 015 -41 013 degrees QTc Int : 475 ms Sinus tachycardia Left axis deviation Minimal voltage criteria for LVH, may be normal variant Nonspecific T wave abnormality Abnormal ECG When compared with ECG of 20-JAN-2015 15:42, No significant change Confirmed by Greg Pollock ([id number]) on 07/01/2021 3:48:59 PM Referred By: REFERRED SELF Confirmed By:Greg Pollock
--- NOTE | 2021-07-01 17:49 | Billing Data ---
Date of Service July 01, 2021 Coding Level of Care Code D/C DAY MANAGEMENT <30 MINS
== END 2021-07-01 14:16 | disposition home or self-care (01) | DRG 603 ==
LOC: ED 18:54 → 3N 06-30 00:18 → SUATTDRO 06-30 00:18 → 3N 06-30 01:32